=== PATIENT | female | born 1930 | race Caucasian/White ===

== ENCOUNTER 2016-09-20 14:01 | Inpatient (IN) | payer MEDICARE, OTHER, MEDICAID ==
[2016-09-20] MEDS ORDERED: NS 0.9% 1000 ML* 1,000 ML IV ONE (14:09)
[2016-09-20 15:02] LABS: Urine Bacteria 3+ (Absent)
[2016-09-20 15:06] LABS: Urine Glucose Negative (Negative)
[2016-09-20 15:07] LABS: Urine Bilirubin Negative (Negative); Urine Nitrite Negative (Negative)
--- NOTE | 2016-09-20 15:18 | RAD ---
Indication: Nausea, vomiting and diarrhea. Flat and decubitus views of the abdomen demonstrates no free air. Stool is present throughout the colon. Air distended colon is noted. No organomegaly is noted. IMPRESSION: No free air is identified.
[2016-09-20 15:20] LABS: Hematocrit 52 % (35-47); Hemoglobin 16.5 g/dl (12.0-16.0); Mean Corpuscular HGB Conc 32 g/dl (31-36); Mean Corpuscular Hemoglobin 31 pg (27-31); Mean Corpuscular Volume 96 fL (80-97); Mean Platelet Volume 9 um3 (7.4-10.4); Red Blood Count 5.39 10^6/ul (4.0-5.4); Red Cell Distribution Width 15 % (10.5-15); White Blood Count 21.7 10^3/ul (3.5-10.8)
[2016-09-20 15:36] LABS: BUN/Creatinine Ratio 33.8 (8-20); C Reactive Protein 82.84 mg/L (< 5.00); Calcium 10.1 mg/dL (8.6-10.3); EGFR African American 26.1 (>60); EGFR Non-African American 20.3 (>60); Globulin 3.7 g/dL (2-4); Magnesium 2.7 mg/dL (1.9-2.7); Potassium 4.3 mmol/L (3.5-5.0); Total Bilirubin 0.7 mg/dL (0.2-1.0); Total Protein 7.7 g/dL (6.4-8.9)
[2016-09-20] MEDS ORDERED: metroNIDAZOLE TAB* 250 MG PO ONE (15:50)
[2016-09-20] MEDS ORDERED: Morphine INJ* 2 MG/ML 1 ML CARPUJECT IV PRN (16:20)
[2016-09-20] MEDS ORDERED: Ondansetron INJ* 2 MG/ML VIAL IV PRN (16:20)
[2016-09-20] MEDS ORDERED: Acetaminophen TAB* 325 MG PO PRN (16:20)
[2016-09-20] MEDS ORDERED: metroNIDAZOLE IV 500 MG/100ML* 500 MG/100 ML BAG IVPB ONE (16:29)
--- NOTE | 2016-09-20 16:51 | ED ---
Tom Thomas Billy, scribed for Spencer Dobson MD on 09/20/16 at 1450 . Complex/Multi-Sys Presentation - HPI Summary HPI Summary: Patient is an 86 year-old female with a history of dementia coming to [facility] from long-term. Per long-term staff, patient has had increased AMS for the last 2 days. She has received Rocephin IM for the last 2 days. Large soft BM incontinent on arrival. - History Of Current Complaint Chief Complaint: EDWeakness Time Seen by Provider: 09/20/16 14:02 Hx Obtained From: Medical Records Hx From Patient Unobtainable Due To: Other - Dementia, AMS, Level 5 caveat. Timing: Constant Severity Currently: Moderate Severity Initially: Moderate Aggravating Factor(s): n/a Alleviating Factor(s): n/a Associated Signs And Symptoms: Positive: Other - stool incontinence - Allergies/Home Medications Allergies/Adverse Reactions: Allergies Allergy/AdvReac Type Severity Reaction Status Date / Time Sulfa Antibiotics Allergy Unknown Unknown Verified 08/10/16 19:54 Reaction Details Tetracycline Allergy Unknown Unknown Verified 08/10/16 19:54 Reaction Details Tobramycin Allergy Unknown Unknown Verified 08/10/16 19:54 Reaction Details Home Medications: Home Medications Acetaminophen [Acetaminophen Extra Stren] 1,000 mg PO Q12HR PRN 09/20/16 [ History Confirmed 09/20/16] Amiodarone TAB* [Cordarone TAB*] 200 mg PO QAM 09/20/16 [History Confirmed 09/20] Potassium Chlor TAB* [Klor Con ER TAB*] 20 meq PO DAILY 09/20/16 [History Confirmed 09/20/16] Potassium Chlor TAB* [Klor Con ER TAB*] 20 meq PO DAILY 09/20/16 [History Confirmed 09/20/16] cefTRIAXone(*) [Rocephin(*)] 1 gm IM BEDTIME 09/20/16 [History Confirmed ] predniSONE TAB* [Deltasone TAB*] 15 mg PO QAM 09/20/16 [History Confirmed ] PMH/Surg Hx/FS Hx/Imm Hx Endocrine/Hematology History: Reports: Hx Thyroid Disease - hypothyroidism Cardiovascular History: Reports: Hx Coronary Artery Disease, Hx Pacemaker/ICD Sensory History: Reports: Hx Contacts or Glasses Opthamlomology History: Reports: Hx Contacts or Glasses Neurological History: Reports: Hx Dementia - Cancer History Cancer Type, 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 - Social History Alcohol Use: None Substance Use Type: Reports: None Smoking Status (MU): Former Smoker Review of Systems Positive: Other - stool incontinence Neurological: Other - AMS All Other Systems Reviewed And Are Negative: No - Comments Additional Review of Systems Comments: Full ROS not attainable due to AMS, dementia, level 5 caveat. Physical Exam - Summary Physical Exam Summary: VITAL SIGNS: Reviewed. GENERAL: Patient is a well developed and nourished female who seems confused and dehydrated. Patient is not in any acute respiratory distress. HEAD AND FACE: No signs of trauma. No ecchymosis, hematomas or skull depressions. EYES: PERRLA, EOMI x 2, EARS: Hearing grossly intact. MOUTH: Oropharynx within normal limits. NECK: Supple, trachea is midline, no adenopathy, no JVD,. CHEST: Symmetric, no tenderness at palpation LUNGS: Clear to auscultation bilaterally. No wheezing or crackles. CVS: Regular rate and rhythm, S1 and S2 present, no murmurs or gallops appreciated. ABDOMEN: Soft, non-tender. No signs of distention. Hyperactive bowel sounds. EXTREMITIES: FROM in all major joints, no edema, no cyanosis or clubbing. NEURO: Alert but not oriented. SKIN: Dry and warm Triage Information Reviewed: Yes Vital Signs On Initial Exam: Initial Vitals BP 110/77 09/20/16 14:27 Vital Signs Reviewed: Yes Completion Of Physical Exam Limited Due To: Dementia, Altered Mental Status, Level 5 Diagnostics - Vital Signs Vital Signs Temp Pulse Resp BP Pulse Ox 09/20/16 14:44 98.2 F 107 18 110/77 94 09/20/16 14:30 108 124/78 94 09/20/16 14:27 110/77 - Laboratory Lab Results: Lab Results 09/20/16 09/20/16 09/20/16 Range/Units 14:30 15:00 15:00 WBC 21.7 H (3.5-10.8) 10^3/ul RBC 5.39 (4.0-5.4) 10^6/ul Hgb 16.5 H (12.0-16.0) g/dl Hct 52 H (35-47) % MCV 96 (80-97) fL MCH 31 (27-31) pg MCHC 32 (31-36) g/dl RDW 15 (10.5-15) % Plt Count 246 (150-450) 10^3/ul MPV 9 (7.4-10.4) um3 Neut % (Auto) 91.9 H (38-83) % Lymph % (Auto) 2.2 L (25-47) % [place] % (Auto) 5.5 (1-9) % Eos % (Auto) 0 (0-6) % Baso % (Auto) 0.4 (0-2) % Absolute Neuts (auto) 20.0 H (1.5-7.7) 10^3/ul Absolute Lymphs (auto) 0.5 L (1.0-4.8) 10^3/ul Absolute Monos (auto) 1.2 H (0-0.8) 10^3/ul Absolute Eos (auto) 0 (0-0.6) 10^3/ul Absolute Basos (auto) 0.1 (0-0.2) 10^3/ul Absolute Nucleated RBC 0.01 10^3/ul Nucleated RBC % 0 Sodium 144 (133-145) mmol/L Potassium 4.3 (3.5-5.0) mmol/L Chloride 106 (101-111) mmol/L Carbon Dioxide 28 (22-32) mmol/L Anion Gap 10 (2-11) mmol/L BUN 77 H (6-24) mg/dL Creatinine 2.28 H (0.51-0.95) mg/dL Est GFR ( Amer) 26.1 (>60) Est GFR (Non-Af Amer) 20.3 (>60) BUN/Creatinine Ratio 33.8 H (8-20) Glucose 399 H (70-100) mg/dL Lactic Acid (0.5-2.0) mmol/L Calcium 10.1 (8.6-10.3) mg/dL Magnesium 2.7 (1.9-2.7) mg/dL Total Bilirubin 0.70 (0.2-1.0) mg/dL AST 16 (13-39) U/L ALT 13 (7-52) U/L Alkaline Phosphatase 56 (34-104) U/L C-Reactive Protein 82.84 H (< 5.00) mg/L Total Protein 7.7 (6.4-8.9) g/dL Albumin 4.0 (3.2-5.2) g/dL Globulin 3.7 (2-4) g/dL Albumin/Globulin Ratio 1.1 (1-3) Amylase 75 (29-103) U/L Lipase 57 (11.0-82.0) U/L Urine Color Susan Urine Appearance Turbid Urine pH 5 (5-9) Ur Specific [place] 1.035 H (1.010-1.030) Urine Protein 2+(100 mg/dl) H (Negative) Urine Ketones Negative (Negative) Urine Blood 1+ H (Negative) Urine Nitrate Negative (Negative) Urine Bilirubin Negative (Negative) Urine Urobilinogen Negative (Negative) Ur Leukocyte Esterase 4+ H (Negative) Urine WBC (Auto) 3+(>20/hpf) H (Absent) Urine RBC (Auto) Trace(0-2/hpf) (Absent) Urine Bacteria 3+ H (Absent) Urine Glucose Negative (Negative) Urine Ascorbic Acid Not Reportable 09/20/16 Range/Units 15:00 WBC (3.5-10.8) 10^3/ul RBC (4.0-5.4) 10^6/ul Hgb (12.0-16.0) g/dl Hct (35-47) % MCV (80-97) fL MCH (27-31) pg MCHC (31-36) g/dl RDW (10.5-15) % Plt Count (150-450) 10^3/ul MPV (7.4-10.4) um3 Neut % (Auto) (38-83) % Lymph % (Auto) (25-47) % [place] % (Auto) (1-9) % Eos % (Auto) (0-6) % Baso % (Auto) (0-2) % Absolute Neuts (auto) (1.5-7.7) 10^3/ul Absolute Lymphs (auto) (1.0-4.8) 10^3/ul Absolute Monos (auto) (0-0.8) 10^3/ul Absolute Eos (auto) (0-0.6) 10^3/ul Absolute Basos (auto) (0-0.2) 10^3/ul Absolute Nucleated RBC 10^3/ul Nucleated RBC % Sodium (133-145) mmol/L Potassium (3.5-5.0) mmol/L Chloride (101-111) mmol/L Carbon Dioxide (22-32) mmol/L Anion Gap (2-11) mmol/L BUN (6-24) mg/dL Creatinine (0.51-0.95) mg/dL Est GFR ( Amer) (>60) Est GFR (Non-Af Amer) (>60) BUN/Creatinine Ratio (8-20) Glucose (70-100) mg/dL Lactic Acid 3.2 H* (0.5-2.0) mmol/L Calcium (8.6-10.3) mg/dL Magnesium (1.9-2.7) mg/dL Total Bilirubin (0.2-1.0) mg/dL AST (13-39) U/L ALT (7-52) U/L Alkaline Phosphatase (34-104) U/L C-Reactive Protein (< 5.00) mg/L Total Protein (6.4-8.9) g/dL Albumin (3.2-5.2) g/dL Globulin (2-4) g/dL Albumin/Globulin Ratio (1-3) Amylase (29-103) U/L Lipase (11.0-82.0) U/L Urine Color Urine Appearance Urine pH (5-9) Ur Specific [place] (1.010-1.030) Urine Protein (Negative) Urine Ketones (Negative) Urine Blood (Negative) Urine Nitrate (Negative) Urine Bilirubin (Negative) Urine Urobilinogen (Negative) Ur Leukocyte Esterase (Negative) Urine WBC (Auto) (Absent) Urine RBC (Auto) (Absent) Urine Bacteria (Absent) Urine Glucose (Negative) Urine Ascorbic Acid Result Diagrams: 09/20/16 15:00 09/20/16 15:00 Lab Statement: Any lab studies that have been ordered have been reviewed, and results considered in the medical decision making process. - Radiology abd xray Radiology Interpretation Completed By: Radiologist - No free air is identified. - EKG 1359 EKG Interpretation: sinus tachy 111 bpm, no ST elevation 1455 EKG Interpretation: sinus tachy 108 bpm, no ST elevation Complex Multi-Symp Course/Dx Assessment/Plan: Patient is an 86 year-old female with a history of dementia coming to [facility] from long-term. Per long-term staff, patient has had increased AMS for the last 2 days. She has received Rocephin IM for the last 2 days. Large soft BM incontinent on arrival. Bloodwork WNL except for WBC of 21.7 , Hgb 16.5, Hct 52, BUN and creatinine of 77/2.28, glucose of 399, UA positive for UTI. C diff test was positive. In the ED course, patient was given IV fluids. She already had a dose of Rocephin this morning in long-term for UTI , and she was given Flagyl for C diff. At this point, I discussed my physical exam findings and test results with Dr. Vernon, who accepted the patient for admission. - Diagnoses Differential Diagnoses/HQI/PQRI: CVA, Urinary Tract Infection Provider Diagnoses: C. difficile diarrhea, Renal failure, UTI (urinary tract infection), Confusion , r/o sepsis, Dehydration - Physician Notifications Discussed Care Of Patient With: Dr. Vernon (hospitalist) @ 1630: accepts admission. Discharge - Discharge Plan Condition: Stable Disposition: ADMITTED TO [facility] Referrals: Jin Will DO, DO [Primary Care Provider] - The documentation as recorded by the Tom hager Billy accurately reflects the service I personally performed and the decisions made by me, Spencer Dobson MD.
[2016-09-20] MEDS ORDERED: metroNIDAZOLE IV 500 MG/100ML* 500 MG/100 ML BAG IVPB SCH (17:00)
[2016-09-20] MEDS ORDERED: cefTRIAXone VIAL(*) 1,000 MG in NS 0.9% 50 ML* 50 ML IVPB SCH (17:00)
[2016-09-20] MEDS: Vancomycin CAP* 125 MG CAP PO SCH ×2 (17:18→21:16)
[2016-09-20] MEDS: Heparin VIAL(*) 5000 UNITS/ML VIAL (FIVE THOUSAND) SUBCUT SCH (21:16)
--- NOTE | 2016-09-21 02:25 | HP ---
HISTORY AND PHYSICAL: DATE OF ADMISSION: 09/20/16 TIME OF MY EVALUATION: 1600 hours PRIMARY CARE PROVIDER: [facility]/Dr. Will. CHIEF COMPLAINT: Referred by staff - altered mental status for past 2 days. HISTORY OF PRESENT ILLNESS: Ms. Fenton is a severely demented 86-year-old female who has had worsening altered mental status over the past 2 days. She was diagnosed with a urinary tract infection and I understand she has received IM Rocephin for the past 2 days for this. The patient has had worsening soft bowel movements and there was concern for Clostridium difficile. The patient was evaluated in the ER and found to be positive for C. diff which, in the context of her severe diarrhea, was taken as a true infection. Her white blood cell count is elevated at 21.7. Her chemistries are concerning with an elevated creatinine relative to her baseline at 2.28. By reference, only 2 weeks ago her creatinine was 0.92 on 09/06/16. This represents acute renal failure, her lactic acid was 3.2. So, she was referred to the hospitalist service for further workup. Of note, her urinalysis is also abnormal with a white blood cell count of 3+ by microscopy with greater than 20 cells per high power field. The patient does not provide any history -- does not respond to any questions. PAST MEDICAL HISTORY: 1. Status post AV node dysfunction and pacemaker placement. 2. History of coronary artery disease. 3. Dementia. 4. History of aortic stenosis. 5. History of head and neck cancer. 6. History of smoking. 7. Hypertension. 8. COPD. 9. Hypothyroidism. OUTPATIENT MEDICATIONS: 1. Synthroid 50 mcg by mouth daily. 2. Celexa 10 mg by mouth daily. 3. Atenolol 50 mg by mouth daily. 4. Furosemide 20 mg by mouth daily. 5. Norvasc 5 mg by mouth daily. 6. Acetaminophen 1000 mg by mouth twice daily. 7. Prednisone 50 mg by mouth in the morning. ALLERGIES: Include SULFA ANTIBIOTICS, TETRACYCLINES, and TOBRAMYCIN. FAMILY HISTORY: Reviewed but unremarkable based on the chart, unobtainable from this patient. SOCIAL HISTORY: Denies tobacco, alcohol, drug use - prison resident at [facility] - healthcare proxy is daughter, Nallely Soliz. Nallely lives out of state at [phone]. REVIEW OF SYSTEMS: Unable to obtain secondary to the patient's mental status. No pertinent positives noticed from the chart or description from the nursing staff at [facility]. PHYSICAL EXAMINATION GENERAL APPEARANCE: She is an elderly, frail-appearing demented woman in a lateral position, unresponsive to questions. VITAL SIGN: On admission, temperature 98.9, pulse 97, respirations 17, oxygen saturation 96% on room air, blood pressure 130s to 140s/70s. HEENT: Oropharynx is clear. SKIN: Dry and intact. NECK: Supple. No elevated JVD, though the patient is not positioned for proper evaluation. CHEST: Clear to auscultation posteriorly. HEART: Regular rate and rhythm. No murmurs appreciated. ABDOMEN: Soft and nontender. EXTREMITIES: Well perfused. NEUROLOGIC: Unable to assess secondary to mental status but withdraws to pain. PSYCH: Severely demented. ADMISSION DATA: White blood cell count elevated at 21.7 with a severe left shift with 92% neutrophils. Her hemoglobin is hemoconcentrated at 16.5 mg/dL, again back in August she was 13, and platelets 246. Chemistries are most significant for BUN and creatinine of 77/2.8 with a ratio of 33.8 and the creatinine is up from baseline is below 1 to now 2.28. Her glucose is very elevated at 399 - the patient is on steroids and acutely ill. Hemoglobin A1c is 7.7, lactic acid was 3.2 and on recheck 2.2 following fluid administration. Calcium, magnesium are both normal. LFTs normal. CRP greatly elevated at 82. Amylase and lipase 75 and 57, respectively. The abdominal x-ray in the emergency room did not reveal any free air. Her EKG did not have any signs of acute ischemia. Tracing was atrial sensed, V- paced complexes with a rate of 111 beats per minute. IMPRESSION: Ms. Fenton is an 86-year-old female who seems to be suffering from C. diff colitis. I do not think this is related to her urinary tract infection treatment in the prison, for which she had antibiotics intramuscularly for only 3 days. This might be a separate occurrence/separate phenomenon, although she does also have urinary tract infection. Regardless, she is septic with a leukocytosis and tachycardia - as evidenced by the EKG that was taken in the emergency room. She has got multiple lab derangements including acute renal failure with an elevated BUN to creatinine ratio and also hemoconcentration and hemoglobin that is far above her baseline. The patient is being placed on the medical service. She will be kept on contact precautions. She will be started on oral vancomycin. She was originally started on IV metronidazole, but there is severe interactions between her amiodarone and her Celexa, causing very high risk for serotonin syndrome. Oral vancomycin will be certainly effective in this case. The patient will be aggressively hydrated. Labs will be rechecked in the morning including a lactic acid. Vital signs will be followed closely. She is hemodynamically stable right now. Her stool output will be quantified. Obviously, there is high risk for electrolyte derangements with high stool losses. We will combine an alternate LR with normal saline. The patient is a DNR. The patient will continue other medications as she can tolerate. TIME SPENT: Total time taken to admit Ms. Fenton was 75 minutes, greater than half the time was spent going over the history and physical examination. [id number]/[facility] #: [id number] MELISSA
[2016-09-21] MEDS: Levothyroxine TAB* 50 MCG TAB PO SCH (06:09)
[2016-09-21] MEDS: Heparin VIAL(*) 5000 UNITS/ML VIAL (FIVE THOUSAND) SUBCUT SCH ×3 (06:09→21:21)
[2016-09-21 06:27] LABS: Hematocrit 46 % (35-47); Hemoglobin 14.7 g/dl (12.0-16.0); Mean Corpuscular HGB Conc 32 g/dl (31-36); Mean Corpuscular Hemoglobin 30 pg (27-31); Mean Corpuscular Volume 95 fL (80-97); Mean Platelet Volume 9 um3 (7.4-10.4); Red Blood Count 4.84 10^6/ul (4.0-5.4); Red Cell Distribution Width 15 % (10.5-15); White Blood Count 20.3 10^3/ul (3.5-10.8)
[2016-09-21 07:03] LABS: BUN/Creatinine Ratio 35.3 (8-20); Calcium 9.5 mg/dL (8.6-10.3); EGFR African American 48.5 (>60); EGFR Non-African American 37.7 (>60); Magnesium 1.9 mg/dL (1.9-2.7); Phosphorus 2.5 mg/dL (2.5-5.0); Potassium 3.9 mmol/L (3.5-5.0)
[2016-09-21] MEDS ORDERED: NS 0.45% 1000 ML BAG* 1,000 ML IV SCH (08:00)
[2016-09-21] MEDS ORDERED: Potassium Chlor TAB* 20 MEQ TAB.ER PO SCH (09:00)
[2016-09-21] MEDS: Amiodarone TAB* 200 MG PO SCH (09:21)
[2016-09-21] MEDS: Citalopram TAB* 10 MG PO SCH (09:21)
[2016-09-21] MEDS: amLODIPine TAB* 5 MG PO SCH (09:21)
[2016-09-21] MEDS: cefTRIAXone VIAL(*) 1,000 MG in NS 0.9% 50 ML* 50 ML IVPB SCH (09:21)
[2016-09-21] MEDS: Potassium Chlor TAB* 20 MEQ TAB.ER PO SCH (09:21)
[2016-09-21] MEDS: predniSONE TAB* 5 MG PO SCH (09:22)
[2016-09-21] MEDS: Vancomycin CAP* 125 MG CAP PO SCH ×4 (09:22→21:21)
--- NOTE | 2016-09-21 13:24 | PN ---
Subjective Date of Service: 09/21/16 Interval History: pt is disoriented, unable to say if she has pain. speech slightly slurred Objective Active Medications: Acetaminophen (Tylenol Tab*) 650 mg PO Q4H PRN PRN Reason: FEVER/PAIN Amiodarone HCl (Cordarone Tab*) 200 mg PO QAM [facility] Last Admin: 09/21/16 09:21 Dose: 200 mg Amlodipine Besylate (Norvasc Tab*) 5 mg PO QAM [facility] Last Admin: 09/21/16 09:21 Dose: 5 mg Citalopram Hydrobromide (Celexa Tab*) 10 mg PO QAM [facility] Last Admin: 09/21/16 09:21 Dose: 10 mg Heparin Sodium (Porcine) (Heparin Vial(*)) 5,000 units SUBCUT Q8HR [facility] Last Admin: 09/21/16 13:00 Dose: 5,000 units Ceftriaxone Sodium 1,000 mg/ (Sodium Chloride) 50 mls @ 200 mls/hr IVPB Q24H [facility] Last Admin: 09/21/16 09:21 Dose: 200 mls/hr Sodium Chloride (Ns 0.45% 1000 Ml Bag*) 1,000 mls @ 75 mls/hr IV PER RATE [facility] Last Admin: 09/21/16 09:19 Dose: 75 mls/hr Levothyroxine Sodium (Synthroid Tab*) 50 mcg PO DAILY@0600 [facility] Last Admin: 09/21/16 06:09 Dose: 50 mcg Morphine Sulfate (Morphine Inj (Syringe)*) 2 mg IV Q4H PRN PRN Reason: PAIN Ondansetron HCl (Zofran Inj*) 4 mg IV Q4H PRN PRN Reason: NAUSEA/VOMITING Potassium Chloride (Klor Con Er Tab*) 20 meq PO DAILY WITH MEAL [facility] Last Admin: 09/21/16 09:21 Dose: 20 meq Prednisone (Deltasone Tab*) 15 mg PO DAILY WITH MEAL [facility] Last Admin: 09/21/16 09:22 Dose: 15 mg Vancomycin HCl (Vancomycin Cap*) 125 mg PO QID [facility] Last Admin: 09/21/16 12:58 Dose: 125 mg Vital Signs 09/20/16 09/20/16 09/20/16 16:30 17:00 18:11 Temperature 98.9 F Pulse Rate 97 Respiratory 21 21 17 Rate Blood Pressure 147/58 135/59 149/73 (mmHg) O2 Sat by Pulse 96 Oximetry 09/20/16 09/20/16 09/20/16 18:17 20:00 22:51 Temperature 98.9 F Pulse Rate 97 Respiratory 17 18 18 Rate Blood Pressure 149/73 (mmHg) O2 Sat by Pulse 96 Oximetry 09/21/16 09/21/16 09/21/16 04:55 07:17 08:00 Temperature 98.3 F 97.7 F Pulse Rate 96 93 Respiratory 19 20 20 Rate Blood Pressure 145/66 151/73 (mmHg) O2 Sat by Pulse 94 97 Oximetry Appearance: 86 yo F with slightly dysartic speech, disoriented, able to follow simple commands Eyes: No Scleral Icterus, PERRLA Ears/Nose/Mouth/Throat: NL Teeth, Lips, Gums, Mucous Membranes Moist Neck: NL Appearance and Movements; NL JVP, Trachea Midline Respiratory: Symmetrical Chest Expansion and Respiratory Effort, Clear to Auscultation Cardiovascular: NL Sounds; No Murmurs; No JVD, - - 3/6 DAMION at apex Abdominal: NL Sounds; No Tenderness; No Distention, No Hepatosplenomegaly Lymphatic: No Cervical Adenopathy Extremities: No Edema, No Clubbing, Cyanosis Skin: No Rash or Ulcers, No Nodules or Sclerosis Neurological: NL Muscle Strength and Tone Result Diagrams: 09/21/16 06:06 09/21/16 06:06 Additional Lab and Data: Lab Results 09/20/16 09/20/16 09/20/16 Range/Units 14:30 15:00 15:00 WBC 21.7 H (3.5-10.8) 10^3/ul RBC 5.39 (4.0-5.4) 10^6/ul Hgb 16.5 H (12.0-16.0) g/dl Hct 52 H (35-47) % MCV 96 (80-97) fL MCH 31 (27-31) pg MCHC 32 (31-36) g/dl RDW 15 (10.5-15) % Plt Count 246 (150-450) 10^3/ul MPV 9 (7.4-10.4) um3 Neut % (Auto) 91.9 H (38-83) % Lymph % (Auto) 2.2 L (25-47) % [place] % (Auto) 5.5 (1-9) % Eos % (Auto) 0 (0-6) % Baso % (Auto) 0.4 (0-2) % Absolute Neuts (auto) 20.0 H (1.5-7.7) 10^3/ul Absolute Lymphs (auto) 0.5 L (1.0-4.8) 10^3/ul Absolute Monos (auto) 1.2 H (0-0.8) 10^3/ul Absolute Eos (auto) 0 (0-0.6) 10^3/ul Absolute Basos (auto) 0.1 (0-0.2) 10^3/ul Absolute Nucleated RBC 0.01 10^3/ul Nucleated RBC % 0 Sodium 144 (133-145) mmol/L Potassium 4.3 (3.5-5.0) mmol/L Chloride 106 (101-111) mmol/L Carbon Dioxide 28 (22-32) mmol/L Anion Gap 10 (2-11) mmol/L BUN 77 H (6-24) mg/dL Creatinine 2.28 H (0.51-0.95) mg/dL Est GFR ( Amer) 26.1 (>60) Est GFR (Non-Af Amer) 20.3 (>60) BUN/Creatinine Ratio 33.8 H (8-20) Glucose 399 H (70-100) mg/dL Lactic Acid (0.5-2.0) mmol/L Calcium 10.1 (8.6-10.3) mg/dL Magnesium 2.7 (1.9-2.7) mg/dL Total Bilirubin 0.70 (0.2-1.0) mg/dL AST 16 (13-39) U/L ALT 13 (7-52) U/L Alkaline Phosphatase 56 (34-104) U/L C-Reactive Protein 82.84 H (< 5.00) mg/L Total Protein 7.7 (6.4-8.9) g/dL Albumin 4.0 (3.2-5.2) g/dL Globulin 3.7 (2-4) g/dL Albumin/Globulin Ratio 1.1 (1-3) Amylase 75 (29-103) U/L Lipase 57 (11.0-82.0) U/L Urine Color Susan Urine Appearance Turbid Urine pH 5 (5-9) Ur Specific [place] 1.035 H (1.010-1.030) Urine Protein 2+(100 mg/dl) H (Negative) Urine Ketones Negative (Negative) Urine Blood 1+ H (Negative) Urine Nitrate Negative (Negative) Urine Bilirubin Negative (Negative) Urine Urobilinogen Negative (Negative) Ur Leukocyte Esterase 4+ H (Negative) Urine WBC (Auto) 3+(>20/hpf) H (Absent) Urine RBC (Auto) Trace(0-2/hpf) (Absent) Urine Bacteria 3+ H (Absent) Urine Glucose Negative (Negative) Urine Ascorbic Acid Not Reportable 09/20/16 Range/Units 15:00 WBC (3.5-10.8) 10^3/ul RBC (4.0-5.4) 10^6/ul Hgb (12.0-16.0) g/dl Hct (35-47) % MCV (80-97) fL MCH (27-31) pg MCHC (31-36) g/dl RDW (10.5-15) % Plt Count (150-450) 10^3/ul MPV (7.4-10.4) um3 Neut % (Auto) (38-83) % Lymph % (Auto) (25-47) % [place] % (Auto) (1-9) % Eos % (Auto) (0-6) % Baso % (Auto) (0-2) % Absolute Neuts (auto) (1.5-7.7) 10^3/ul Absolute Lymphs (auto) (1.0-4.8) 10^3/ul Absolute Monos (auto) (0-0.8) 10^3/ul Absolute Eos (auto) (0-0.6) 10^3/ul Absolute Basos (auto) (0-0.2) 10^3/ul Absolute Nucleated RBC 10^3/ul Nucleated RBC % Sodium (133-145) mmol/L Potassium (3.5-5.0) mmol/L Chloride (101-111) mmol/L Carbon Dioxide (22-32) mmol/L Anion Gap (2-11) mmol/L BUN (6-24) mg/dL Creatinine (0.51-0.95) mg/dL Est GFR ( Amer) (>60) Est GFR (Non-Af Amer) (>60) BUN/Creatinine Ratio (8-20) Glucose (70-100) mg/dL Lactic Acid 3.2 H* (0.5-2.0) mmol/L Calcium (8.6-10.3) mg/dL Magnesium (1.9-2.7) mg/dL Total Bilirubin (0.2-1.0) mg/dL AST (13-39) U/L ALT (7-52) U/L Alkaline Phosphatase (34-104) U/L C-Reactive Protein (< 5.00) mg/L Total Protein (6.4-8.9) g/dL Albumin (3.2-5.2) g/dL Globulin (2-4) g/dL Albumin/Globulin Ratio (1-3) Amylase (29-103) U/L Lipase (11.0-82.0) U/L Urine Color Urine Appearance Urine pH (5-9) Ur Specific [place] (1.010-1.030) Urine Protein (Negative) Urine Ketones (Negative) Urine Blood (Negative) Urine Nitrate (Negative) Urine Bilirubin (Negative) Urine Urobilinogen (Negative) Ur Leukocyte Esterase (Negative) Urine WBC (Auto) (Absent) Urine RBC (Auto) (Absent) Urine Bacteria (Absent) Urine Glucose (Negative) Urine Ascorbic Acid Microbiology and Other Data: Microbiology 09/20/16 16:40 Nasal Screen MRSA (PCR)(DAWIT) - Final Nasal Mrsa Negative Assess/Plan/Problems-Billing Assessment: 86 yo F with h/o HTN, pacer on chronic prednisone presents with C. diff diarrhea - Patient Problems (1) C. difficile diarrhea Comment: Met sepsis criteria at admission cont PO Vanc (2) ARAMIS (acute kidney injury) Comment: due to dehydration secondary to above. Start 1/2 NS due to slight hypernatremia Monitor (3) Hypothyroid Comment: cont Synthroid (4) Hyperglycemia Comment: due to diet controlled DM (5) DVT prophylaxis Comment: heparin sc.
[2016-09-21 13:33] LABS: BUN/Creatinine Ratio 34.2 (8-20); EGFR African American 59.8 (>60); EGFR Non-African American 46.5 (>60); Potassium 3.7 mmol/L (3.5-5.0)
[2016-09-22] MEDS: Heparin VIAL(*) 5000 UNITS/ML VIAL (FIVE THOUSAND) SUBCUT SCH ×3 (05:27→21:21)
[2016-09-22] MEDS: Levothyroxine TAB* 50 MCG TAB PO SCH (05:27)
[2016-09-22 06:09] LABS: Hematocrit 42 % (35-47); Hemoglobin 13.3 g/dl (12.0-16.0); Mean Corpuscular HGB Conc 32 g/dl (31-36); Mean Corpuscular Hemoglobin 30 pg (27-31); Mean Corpuscular Volume 95 fL (80-97); Mean Platelet Volume 9 um3 (7.4-10.4); Red Blood Count 4.37 10^6/ul (4.0-5.4); Red Cell Distribution Width 15 % (10.5-15); White Blood Count 15.2 10^3/ul (3.5-10.8)
[2016-09-22 06:11] LABS: Add Diff/Slide Review? Slide Review Added; Comments Flag Yes
[2016-09-22 06:21] LABS: BUN/Creatinine Ratio 27.4 (8-20); Calcium 8.9 mg/dL (8.6-10.3); EGFR African American 63.1 (>60); Potassium 3.4 mmol/L (3.5-5.0)
[2016-09-22] MEDS ORDERED: Potassium Chloride LIQUID* 20 MEQ PACKET PO ONE (09:00)
[2016-09-22] MEDS: cefTRIAXone VIAL(*) 1,000 MG in NS 0.9% 50 ML* 50 ML IVPB SCH (09:31)
[2016-09-22] MEDS: Potassium Chlor TAB* 20 MEQ TAB.ER PO SCH (09:33)
[2016-09-22] MEDS: Vancomycin CAP* 125 MG CAP PO SCH ×4 (09:33→21:30)
[2016-09-22] MEDS: amLODIPine TAB* 5 MG PO SCH (09:33)
[2016-09-22] MEDS: Amiodarone TAB* 200 MG PO SCH (09:34)
[2016-09-22] MEDS: Citalopram TAB* 10 MG PO SCH (09:34)
[2016-09-22] MEDS: predniSONE TAB* 5 MG PO SCH (09:34)
--- NOTE | 2016-09-22 11:34 | PN ---
Subjective Date of Service: 09/22/16 Interval History: pt feels well. diarrhea seems to be resolving. Denies abd pain. Objective Active Medications: Acetaminophen (Tylenol Tab*) 650 mg PO Q4H PRN PRN Reason: FEVER/PAIN Amiodarone HCl (Cordarone Tab*) 200 mg PO QAM [facility] Last Admin: 09/22/16 09:34 Dose: 200 mg Amlodipine Besylate ([facility]*) [facility] Last Admin: 09/22/16 09:33 Dose: 5 mg Citalopram Hydrobromide (Celexa Tab*) 10 mg PO QAM [facility] Last Admin: 09/22/16 09:34 Dose: 10 mg Heparin Sodium (Porcine) (Heparin Vial(*)) 5,000 units SUBCUT Q8HR [facility] Last Admin: 09/22/16 05:27 Dose: 5,000 units Ceftriaxone Sodium 1,000 mg/ (Sodium Chloride) 50 mls @ 200 mls/hr IVPB Q24H [facility] Last Admin: 09/22/16 09:31 Dose: 200 mls/hr Sodium Chloride (Ns 0.9% 1000 Ml*) 1,000 mls @ 75 mls/hr IV .PER RATE [facility] Levothyroxine Sodium (Synthroid Tab*) 50 mcg PO DAILY@0600 [facility] Last Admin: 09/22/16 05:27 Dose: 50 mcg Morphine Sulfate (Morphine Inj (Syringe)*) 2 mg IV Q4H PRN PRN Reason: PAIN Ondansetron HCl (Zofran Inj*) 4 mg IV Q4H PRN PRN Reason: NAUSEA/VOMITING Potassium Chloride (Klor Con Er Tab*) 20 meq PO DAILY WITH MEAL [facility] Last Admin: 09/22/16 09:33 Dose: 20 meq Prednisone (Deltasone Tab*) 15 mg PO DAILY WITH MEAL [facility] Last Admin: 09/22/16 09:34 Dose: 15 mg Vancomycin HCl (Vancomycin Cap*) 125 mg PO QID [facility] Last Admin: 09/22/16 09:33 Dose: 125 mg Vital Signs 09/21/16 09/21/16 09/21/16 15:53 16:03 20:00 Temperature 97.8 F Pulse Rate 81 78 Respiratory 28 22 20 Rate Blood Pressure 163/69 142/57 (mmHg) O2 Sat by Pulse 93 94 Oximetry 09/22/16 09/22/16 00:16 08:00 Temperature 97.3 F Pulse Rate 70 Respiratory 16 16 Rate Blood Pressure 144/52 (mmHg) O2 Sat by Pulse 94 Oximetry Oxygen Devices in Use Now: None Appearance: 86 yo F in nAd, AAOx1, pleasant and conversational Eyes: No Scleral Icterus, PERRLA Ears/Nose/Mouth/Throat: NL Teeth, Lips, Gums, Mucous Membranes Moist Neck: NL Appearance and Movements; NL JVP, Trachea Midline Respiratory: Symmetrical Chest Expansion and Respiratory Effort, Clear to Auscultation Cardiovascular: NL Sounds; No Murmurs; No JVD Result Diagrams: 09/22/16 06:00 09/22/16 06:00 Additional Lab and Data: Lab Results 09/20/16 09/20/16 09/20/16 Range/Units 14:30 15:00 15:00 WBC 21.7 H (3.5-10.8) 10^3/ul RBC 5.39 (4.0-5.4) 10^6/ul Hgb 16.5 H (12.0-16.0) g/dl Hct 52 H (35-47) % MCV 96 (80-97) fL MCH 31 (27-31) pg MCHC 32 (31-36) g/dl RDW 15 (10.5-15) % Plt Count 246 (150-450) 10^3/ul MPV 9 (7.4-10.4) um3 Neut % (Auto) 91.9 H (38-83) % Lymph % (Auto) 2.2 L (25-47) % [place] % (Auto) 5.5 (1-9) % Eos % (Auto) 0 (0-6) % Baso % (Auto) 0.4 (0-2) % Absolute Neuts (auto) 20.0 H (1.5-7.7) 10^3/ul Absolute Lymphs (auto) 0.5 L (1.0-4.8) 10^3/ul Absolute Monos (auto) 1.2 H (0-0.8) 10^3/ul Absolute Eos (auto) 0 (0-0.6) 10^3/ul Absolute Basos (auto) 0.1 (0-0.2) 10^3/ul Absolute Nucleated RBC 0.01 10^3/ul Nucleated RBC % 0 Sodium 144 (133-145) mmol/L Potassium 4.3 (3.5-5.0) mmol/L Chloride 106 (101-111) mmol/L Carbon Dioxide 28 (22-32) mmol/L Anion Gap 10 (2-11) mmol/L BUN 77 H (6-24) mg/dL Creatinine 2.28 H (0.51-0.95) mg/dL Est GFR ( Amer) 26.1 (>60) Est GFR (Non-Af Amer) 20.3 (>60) BUN/Creatinine Ratio 33.8 H (8-20) Glucose 399 H (70-100) mg/dL Lactic Acid (0.5-2.0) mmol/L Calcium 10.1 (8.6-10.3) mg/dL Magnesium 2.7 (1.9-2.7) mg/dL Total Bilirubin 0.70 (0.2-1.0) mg/dL AST 16 (13-39) U/L ALT 13 (7-52) U/L Alkaline Phosphatase 56 (34-104) U/L C-Reactive Protein 82.84 H (< 5.00) mg/L Total Protein 7.7 (6.4-8.9) g/dL Albumin 4.0 (3.2-5.2) g/dL Globulin 3.7 (2-4) g/dL Albumin/Globulin Ratio 1.1 (1-3) Amylase 75 (29-103) U/L Lipase 57 (11.0-82.0) U/L Urine Color Susan Urine Appearance Turbid Urine pH 5 (5-9) Ur Specific [place] 1.035 H (1.010-1.030) Urine Protein 2+(100 mg/dl) H (Negative) Urine Ketones Negative (Negative) Urine Blood 1+ H (Negative) Urine Nitrate Negative (Negative) Urine Bilirubin Negative (Negative) Urine Urobilinogen Negative (Negative) Ur Leukocyte Esterase 4+ H (Negative) Urine WBC (Auto) 3+(>20/hpf) H (Absent) Urine RBC (Auto) Trace(0-2/hpf) (Absent) Urine Bacteria 3+ H (Absent) Urine Glucose Negative (Negative) Urine Ascorbic Acid Not Reportable 09/20/16 Range/Units 15:00 WBC (3.5-10.8) 10^3/ul RBC (4.0-5.4) 10^6/ul Hgb (12.0-16.0) g/dl Hct (35-47) % MCV (80-97) fL MCH (27-31) pg MCHC (31-36) g/dl RDW (10.5-15) % Plt Count (150-450) 10^3/ul MPV (7.4-10.4) um3 Neut % (Auto) (38-83) % Lymph % (Auto) (25-47) % [place] % (Auto) (1-9) % Eos % (Auto) (0-6) % Baso % (Auto) (0-2) % Absolute Neuts (auto) (1.5-7.7) 10^3/ul Absolute Lymphs (auto) (1.0-4.8) 10^3/ul Absolute Monos (auto) (0-0.8) 10^3/ul Absolute Eos (auto) (0-0.6) 10^3/ul Absolute Basos (auto) (0-0.2) 10^3/ul Absolute Nucleated RBC 10^3/ul Nucleated RBC % Sodium (133-145) mmol/L Potassium (3.5-5.0) mmol/L Chloride (101-111) mmol/L Carbon Dioxide (22-32) mmol/L Anion Gap (2-11) mmol/L BUN (6-24) mg/dL Creatinine (0.51-0.95) mg/dL Est GFR ( Amer) (>60) Est GFR (Non-Af Amer) (>60) BUN/Creatinine Ratio (8-20) Glucose (70-100) mg/dL Lactic Acid 3.2 H* (0.5-2.0) mmol/L Calcium (8.6-10.3) mg/dL Magnesium (1.9-2.7) mg/dL Total Bilirubin (0.2-1.0) mg/dL AST (13-39) U/L ALT (7-52) U/L Alkaline Phosphatase (34-104) U/L C-Reactive Protein (< 5.00) mg/L Total Protein (6.4-8.9) g/dL Albumin (3.2-5.2) g/dL Globulin (2-4) g/dL Albumin/Globulin Ratio (1-3) Amylase (29-103) U/L Lipase (11.0-82.0) U/L Urine Color Urine Appearance Urine pH (5-9) Ur Specific [place] (1.010-1.030) Urine Protein (Negative) Urine Ketones (Negative) Urine Blood (Negative) Urine Nitrate (Negative) Urine Bilirubin (Negative) Urine Urobilinogen (Negative) Ur Leukocyte Esterase (Negative) Urine WBC (Auto) (Absent) Urine RBC (Auto) (Absent) Urine Bacteria (Absent) Urine Glucose (Negative) Urine Ascorbic Acid Microbiology and Other Data: Microbiology 09/20/16 16:40 Nasal Screen MRSA (PCR)(DAWIT) - Final Nasal Mrsa Negative Assess/Plan/Problems-Billing Assessment: 86 yo F with h/o HTN, pacer, A. fib, on prednisone for h/o skin rash, presents with C. diff diarrhea - Patient Problems (1) C. difficile diarrhea Comment: Met sepsis criteria at admission cont PO Vanc (2) ARAMIS (acute kidney injury) Comment: due to dehydration secondary to above. resolving, cont IVF Monitor (3) Hypothyroid Comment: cont Synthroid (4) Hyperglycemia Comment: due to diet controlled DM (5) Atrial fibrillation Comment: h/o ,cont Amiodarone. (6) On prednisone therapy Comment: as per med records, due to skin rash. will cont current dose No evidence of rash on exam. (7) DVT prophylaxis Comment: heparin sc.
[2016-09-22 14:33] LABS: Urine Bacteria Absent (Absent); Urine Bilirubin Negative (Negative); Urine Glucose Negative (Negative); Urine Nitrite Negative (Negative)
[2016-09-22] MEDS: NS 0.9% 1000 ML* 1,000 ML IV SCH (21:52)
[2016-09-23] MEDS: Levothyroxine TAB* 50 MCG TAB PO SCH (06:14)
[2016-09-23] MEDS: Heparin VIAL(*) 5000 UNITS/ML VIAL (FIVE THOUSAND) SUBCUT SCH ×3 (06:14→21:58)
[2016-09-23 07:05] LABS: BUN/Creatinine Ratio 24.4 (8-20); Calcium 8.4 mg/dL (8.6-10.3); EGFR African American 84.8 (>60); EGFR Non-African American 65.9 (>60)
[2016-09-23] MEDS: Amiodarone TAB* 200 MG PO SCH (07:34)
[2016-09-23] MEDS: predniSONE TAB* 5 MG PO SCH (07:34)
[2016-09-23] MEDS: cefTRIAXone VIAL(*) 1,000 MG in NS 0.9% 50 ML* 50 ML IVPB SCH (07:34)
[2016-09-23] MEDS: amLODIPine TAB* 5 MG PO SCH (07:34)
[2016-09-23] MEDS: Potassium Chlor TAB* 20 MEQ TAB.ER PO SCH (07:34)
[2016-09-23] MEDS: Vancomycin CAP* 125 MG CAP PO SCH ×4 (07:34→20:46)
[2016-09-23] MEDS: Citalopram TAB* 10 MG PO SCH (07:34)
[2016-09-23] MEDS ORDERED: KCL 20 MEQ/100 ML IVPREMIX* 20 MEQ/100 ML BAG IV ONE (08:38)
[2016-09-23] MEDS ORDERED: Potassium Chlor TAB* 20 MEQ TAB.ER PO ONE (08:38)
[2016-09-23] MEDS: NS 0.9% 1000 ML* 1,000 ML IV SCH (11:36)
--- NOTE | 2016-09-23 12:52 | CONS ---
CONSULTATION REPORT: DATE OF CONSULT: 09/23/16 REQUESTING PHYSICIAN: Dr. Oliver. CONSULTING SERVICE: Infectious Disease. REASON FOR CONSULTATION: Recurrent C. difficile associated diarrhea. IMPRESSION: 1. Diarrhea with recent antibiotic use, record suggests it was explosive multiple times per day, Clostridium difficile PCR was positive. This is the second episode since end of July. 2. Has been treated for a Citrobacter and VRE urinary tract infection. However , she has no symptoms of dysuria or frequency and she has had 5 days of treatment. Followup urinalysis is cleared. I do not think there is ongoing urinary tract infection. 3. 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 RECOMMENDATIONS: 1. Stop ceftriaxone. 2. Continue vancomycin 125 mg by mouth 4 times a day. Given this is the second episode, we will plan on 14-day course of vancomycin. HISTORY OF PRESENT ILLNESS: This is an 86-year-old woman with baseline dementia , admitted with worsening diarrhea and decline in mental status from [facility]. Contribution to the history is limited given her baseline mental status which does seem to be improved from admission however, the rest was obtained from discussion with Dr. Oliver and review of the medical record. She had been having worsening diarrhea, was on ceftriaxone. C. diff PCR was positive. She had a leukocytosis 25,000 when she came to the hospital. She was started on oral vancomycin. According to the nurse, today she has had 3 loose bowel movements this morning already. The patient denies fevers, chills, or sweats. Her appetite is okay. She does note diffuse abdominal pain. She had been treated with IM ceftriaxone at [facility] for positive urinalysis which has subsequently grown Citrobacter and VRE. She continues on ceftriaxone here. She denies urinary frequency or dysuria. PAST MEDICAL HISTORY: 1. Aortic stenosis. 2. C. difficile diarrhea. 3. Diverticulitis. 4. Dementia. 5. Coronary artery disease. 6. AV node dysfunction status post pacemaker placement. 7. History of head and neck cancer. 8. Past tobacco use. 9. Hypertension. 10. COPD. 11. Hypothyroidism. MEDICATIONS: 1. Ceftriaxone. 2. Amiodarone. 3. Tylenol. 4. Celexa. 5. Heparin subcutaneous injection. 6. Levothyroxine. 7. Zofran. 8. Potassium. 9. Vancomycin 125 mg by mouth 4 times a day. 10. Amlodipine. 11. Prednisone 50 mg daily. ALLERGIES: SULFA, TETRACYCLINE and TOBRAMYCIN. FAMILY HISTORY: Unknown. SOCIAL HISTORY: She lives at [facility]. She has no travel. REVIEW OF SYSTEMS: Negative except as noted above. PHYSICAL EXAM: Vital Signs: Temperature 36.5, heart rate 60, respiratory rate 16, blood pressure 135/30, O2 sat 97% on room air. General: She is not in distress or diaphoretic. Neurologically, she is awake, oriented x2. Follows commands, answers questions appropriately. HEENT: There is no conjunctival hemorrhage. Oropharynx: Without lesions. Neck is supple without nuchal rigidity. Heart is regular rate and rhythm with a 3/6 systolic murmur. Lungs are clear to auscultation bilaterally. Abdomen: Soft, nontender, nondistended without hepatosplenomegaly. Skin: There are no rashes or splinter hemorrhages. Musculoskeletal: There is no spine tenderness to palpation or joint synovitis. DIAGNOSTIC STUDIES/LAB DATA: Urinalysis shows no blood or nitrites. White blood cell count 15, hemoglobin 13, platelets 186. Creatinine 0.8. Lactate 1, down from 2. Please see impression and recommendations as outlined above which I have discussed with Dr. Oliver. Thank you for asking me to see Ms. Fenton in consultation. [id number]/CPS #: [id number] MTDD
[2016-09-23] MEDS ORDERED: NS 0.9% 1000 ML* 1,000 ML IV SCH (15:21)
--- NOTE | 2016-09-23 15:46 | PN ---
Subjective Date of Service: 09/23/16 Interval History: pt c/o feeling "sore all over". no abd pain. Still has diarrhea. Objective Active Medications: Acetaminophen (Tylenol Tab*) 650 mg PO Q4H PRN PRN Reason: FEVER/PAIN Amiodarone HCl (Cordarone Tab*) 200 mg PO QAM [facility] Last Admin: 09/23/16 07:34 Dose: 200 mg Amlodipine Besylate (Norvasc Tab*) 5 mg PO QAM [facility] Last Admin: 09/23/16 07:34 Dose: 5 mg Citalopram Hydrobromide (Celexa Tab*) 10 mg PO QAM [facility] Last Admin: 09/23/16 07:34 Dose: 10 mg Heparin Sodium (Porcine) (Heparin Vial(*)) 5,000 units SUBCUT Q8HR [facility] Last Admin: 09/23/16 13:48 Dose: 5,000 units Sodium Chloride (Ns 0.9% 1000 Ml*) 1,000 mls @ 50 mls/hr IV .PER RATE [facility] Levothyroxine Sodium (Synthroid Tab*) 50 mcg PO DAILY@0600 [facility] Last Admin: 09/23/16 06:14 Dose: 50 mcg Morphine Sulfate (Morphine Inj (Syringe)*) 2 mg IV Q4H PRN PRN Reason: PAIN Ondansetron HCl (Zofran Inj*) 4 mg IV Q4H PRN PRN Reason: NAUSEA/VOMITING Potassium Chloride (Klor Con Er Tab*) 20 meq PO DAILY WITH MEAL [facility] Last Admin: 09/23/16 07:34 Dose: 20 meq Prednisone (Deltasone Tab*) 15 mg PO DAILY WITH MEAL [facility] Last Admin: 09/23/16 07:34 Dose: 15 mg Vancomycin HCl (Vancomycin Cap*) 125 mg PO QID [facility] Last Admin: 09/23/16 13:48 Dose: 125 mg Vital Signs 09/22/16 09/22/16 09/23/16 16:16 20:00 00:25 Temperature 97.3 F 97.5 F Pulse Rate 74 71 Respiratory 22 20 20 Rate Blood Pressure 145/63 142/57 (mmHg) O2 Sat by Pulse 94 97 Oximetry 09/23/16 09/23/16 07:19 09:28 Temperature 97.7 F Pulse Rate 65 Respiratory 16 20 Rate Blood Pressure 135/30 (mmHg) O2 Sat by Pulse 97 Oximetry Oxygen Devices in Use Now: None Appearance: 86 yo F in nAd, aAOx3 Eyes: No Scleral Icterus, PERRLA Ears/Nose/Mouth/Throat: NL Teeth, Lips, Gums, Mucous Membranes Moist Neck: NL Appearance and Movements; NL JVP, Trachea Midline Respiratory: Symmetrical Chest Expansion and Respiratory Effort, Clear to Auscultation Cardiovascular: NL Sounds; No Murmurs; No JVD, RRR Abdominal: NL Sounds; No Tenderness; No Distention, No Hepatosplenomegaly Lymphatic: No Cervical Adenopathy Extremities: No Edema, No Clubbing, Cyanosis Skin: No Rash or Ulcers Neurological: NL Muscle Strength and Tone Result Diagrams: 09/22/16 06:00 09/23/16 06:27 Additional Lab and Data: Lab Results 09/20/16 09/20/16 09/20/16 Range/Units 14:30 15:00 15:00 WBC 21.7 H (3.5-10.8) 10^3/ul RBC 5.39 (4.0-5.4) 10^6/ul Hgb 16.5 H (12.0-16.0) g/dl Hct 52 H (35-47) % MCV 96 (80-97) fL MCH 31 (27-31) pg MCHC 32 (31-36) g/dl RDW 15 (10.5-15) % Plt Count 246 (150-450) 10^3/ul MPV 9 (7.4-10.4) um3 Neut % (Auto) 91.9 H (38-83) % Lymph % (Auto) 2.2 L (25-47) % [place] % (Auto) 5.5 (1-9) % Eos % (Auto) 0 (0-6) % Baso % (Auto) 0.4 (0-2) % Absolute Neuts (auto) 20.0 H (1.5-7.7) 10^3/ul Absolute Lymphs (auto) 0.5 L (1.0-4.8) 10^3/ul Absolute Monos (auto) 1.2 H (0-0.8) 10^3/ul Absolute Eos (auto) 0 (0-0.6) 10^3/ul Absolute Basos (auto) 0.1 (0-0.2) 10^3/ul Absolute Nucleated RBC 0.01 10^3/ul Nucleated RBC % 0 Sodium 144 (133-145) mmol/L Potassium 4.3 (3.5-5.0) mmol/L Chloride 106 (101-111) mmol/L Carbon Dioxide 28 (22-32) mmol/L Anion Gap 10 (2-11) mmol/L BUN 77 H (6-24) mg/dL Creatinine 2.28 H (0.51-0.95) mg/dL Est GFR ( Amer) 26.1 (>60) Est GFR (Non-Af Amer) 20.3 (>60) BUN/Creatinine Ratio 33.8 H (8-20) Glucose 399 H (70-100) mg/dL Lactic Acid (0.5-2.0) mmol/L Calcium 10.1 (8.6-10.3) mg/dL Magnesium 2.7 (1.9-2.7) mg/dL Total Bilirubin 0.70 (0.2-1.0) mg/dL AST 16 (13-39) U/L ALT 13 (7-52) U/L Alkaline Phosphatase 56 (34-104) U/L C-Reactive Protein 82.84 H (< 5.00) mg/L Total Protein 7.7 (6.4-8.9) g/dL Albumin 4.0 (3.2-5.2) g/dL Globulin 3.7 (2-4) g/dL Albumin/Globulin Ratio 1.1 (1-3) Amylase 75 (29-103) U/L Lipase 57 (11.0-82.0) U/L Urine Color Susan Urine Appearance Turbid Urine pH 5 (5-9) Ur Specific [place] 1.035 H (1.010-1.030) Urine Protein 2+(100 mg/dl) H (Negative) Urine Ketones Negative (Negative) Urine Blood 1+ H (Negative) Urine Nitrate Negative (Negative) Urine Bilirubin Negative (Negative) Urine Urobilinogen Negative (Negative) Ur Leukocyte Esterase 4+ H (Negative) Urine WBC (Auto) 3+(>20/hpf) H (Absent) Urine RBC (Auto) Trace(0-2/hpf) (Absent) Urine Bacteria 3+ H (Absent) Urine Glucose Negative (Negative) Urine Ascorbic Acid Not Reportable 02/03/17 Range/Units 15:00 WBC (3.5-10.8) 10^3/ul RBC (4.0-5.4) 10^6/ul Hgb (12.0-16.0) g/dl Hct (35-47) % MCV (80-97) fL MCH (27-31) pg MCHC (31-36) g/dl RDW (10.5-15) % Plt Count (150-450) 10^3/ul MPV (7.4-10.4) um3 Neut % (Auto) (38-83) % Lymph % (Auto) (25-47) % [place] % (Auto) (1-9) % Eos % (Auto) (0-6) % Baso % (Auto) (0-2) % Absolute Neuts (auto) (1.5-7.7) 10^3/ul Absolute Lymphs (auto) (1.0-4.8) 10^3/ul Absolute Monos (auto) (0-0.8) 10^3/ul Absolute Eos (auto) (0-0.6) 10^3/ul Absolute Basos (auto) (0-0.2) 10^3/ul Absolute Nucleated RBC 10^3/ul Nucleated RBC % Sodium (133-145) mmol/L Potassium (3.5-5.0) mmol/L Chloride (101-111) mmol/L Carbon Dioxide (22-32) mmol/L Anion Gap (2-11) mmol/L BUN (6-24) mg/dL Creatinine (0.51-0.95) mg/dL Est GFR ( Amer) (>60) Est GFR (Non-Af Amer) (>60) BUN/Creatinine Ratio (8-20) Glucose (70-100) mg/dL Lactic Acid 3.2 H* (0.5-2.0) mmol/L Calcium (8.6-10.3) mg/dL Magnesium (1.9-2.7) mg/dL Total Bilirubin (0.2-1.0) mg/dL AST (13-39) U/L ALT (7-52) U/L Alkaline Phosphatase (34-104) U/L C-Reactive Protein (< 5.00) mg/L Total Protein (6.4-8.9) g/dL Albumin (3.2-5.2) g/dL Globulin (2-4) g/dL Albumin/Globulin Ratio (1-3) Amylase (29-103) U/L Lipase (11.0-82.0) U/L Urine Color Urine Appearance Urine pH (5-9) Ur Specific [place] (1.010-1.030) Urine Protein (Negative) Urine Ketones (Negative) Urine Blood (Negative) Urine Nitrate (Negative) Urine Bilirubin (Negative) Urine Urobilinogen (Negative) Ur Leukocyte Esterase (Negative) Urine WBC (Auto) (Absent) Urine RBC (Auto) (Absent) Urine Bacteria (Absent) Urine Glucose (Negative) Urine Ascorbic Acid Microbiology and Other Data: Microbiology 09/20/16 16:40 Nasal Screen MRSA (PCR)(DAWIT) - Final Nasal Mrsa Negative Assess/Plan/Problems-Billing Assessment: 86 yo F with h/o HTN, pacer, A. fib, on prednisone for h/o skin rash, presents with C. diff diarrhea - Patient Problems (1) C. difficile diarrhea Comment: Was septic on admission. cont PO Vanc x 14 days total (2) ARAMIS (acute kidney injury) Comment: due to dehydration secondary to above. resolved, cont gentle IVF when diarrhea still present Monitor (3) Hypothyroid Comment: cont Synthroid (4) Hyperglycemia Comment: due to diet controlled DM (5) Atrial fibrillation Comment: h/o ,cont Amiodarone. (6) On prednisone therapy Comment: as per med records, due to skin rash. will cont current dose No evidence of rash on exam. (7) DVT prophylaxis Comment: heparin sc. Status and Disposition: inpatient
[2016-09-24] MEDS: Heparin VIAL(*) 5000 UNITS/ML VIAL (FIVE THOUSAND) SUBCUT SCH ×2 (05:44→12:26)
[2016-09-24] MEDS: Levothyroxine TAB* 50 MCG TAB PO SCH (05:46)
[2016-09-24] MEDS: Amiodarone TAB* 200 MG PO SCH (07:31)
[2016-09-24] MEDS: Citalopram TAB* 10 MG PO SCH (07:31)
[2016-09-24] MEDS: amLODIPine TAB* 5 MG PO SCH (07:31)
[2016-09-24] MEDS: Potassium Chlor TAB* 20 MEQ TAB.ER PO SCH (07:31)
[2016-09-24] MEDS: predniSONE TAB* 5 MG PO SCH (07:31)
[2016-09-24] MEDS: Vancomycin CAP* 125 MG CAP PO SCH ×2 (07:31→11:58)
--- NOTE | 2016-09-24 07:49 | PN ---
Subjective Date of Service: 09/24/16 Interval History: Pt is disoriented at baseline, no complaints Objective Active Medications: Acetaminophen (Tylenol Tab*) 650 mg PO Q4H PRN PRN Reason: FEVER/PAIN Last Admin: 09/23/16 20:46 Dose: 650 mg Amiodarone HCl (Cordarone Tab*) 200 mg PO QAM [facility] Last Admin: 09/24/16 07:31 Dose: 200 mg Amlodipine Besylate (Norvasc Tab*) 5 mg PO QAM [facility] Last Admin: 09/24/16 07:31 Dose: 5 mg Citalopram Hydrobromide (Celexa Tab*) 10 mg PO QAM [facility] Last Admin: 09/24/16 07:31 Dose: 10 mg Heparin Sodium (Porcine) (Heparin Vial(*)) 5,000 units SUBCUT Q8HR [facility] Last Admin: 09/24/16 05:44 Dose: 5,000 units Sodium Chloride (Ns 0.9% 1000 Ml*) 1,000 mls @ 50 mls/hr IV .PER RATE [facility] Last Admin: 09/24/16 05:44 Dose: 50 mls/hr Levothyroxine Sodium (Synthroid Tab*) 50 mcg PO DAILY@0600 [facility] Last Admin: 09/24/16 05:46 Dose: 50 mcg Morphine Sulfate (Morphine Inj (Syringe)*) 2 mg IV Q4H PRN PRN Reason: PAIN Ondansetron HCl (Zofran Inj*) 4 mg IV Q4H PRN PRN Reason: NAUSEA/VOMITING Potassium Chloride (Klor Con Er Tab*) 20 meq PO DAILY WITH MEAL [facility] Last Admin: 09/24/16 07:31 Dose: 20 meq Prednisone (Deltasone Tab*) 15 mg PO DAILY WITH MEAL [facility] Last Admin: 09/24/16 07:31 Dose: 15 mg Vancomycin HCl (Vancomycin Cap*) 125 mg PO QID [facility] Last Admin: 09/24/16 07:31 Dose: 125 mg Vital Signs 09/23/16 09/23/16 09/23/16 09:28 15:26 20:00 Temperature 96.6 F Pulse Rate 67 Respiratory 20 19 20 Rate Blood Pressure 125/52 (mmHg) O2 Sat by Pulse 97 Oximetry 09/24/16 01:03 Temperature 97.5 F Pulse Rate 63 Respiratory 16 Rate Blood Pressure 151/57 (mmHg) O2 Sat by Pulse 96 Oximetry Oxygen Devices in Use Now: None Appearance: 86 yo F in nAD,oriented to self only Eyes: No Scleral Icterus, PERRLA Ears/Nose/Mouth/Throat: NL Teeth, Lips, Gums, Mucous Membranes Moist Neck: NL Appearance and Movements; NL JVP, Trachea Midline Respiratory: Symmetrical Chest Expansion and Respiratory Effort, Clear to Auscultation Cardiovascular: RRR, - - 2/6 DAMION Abdominal: No Hepatosplenomegaly, - - mild LLQ tenderness, no rebound, no guarding, BS+ Lymphatic: No Cervical Adenopathy Extremities: No Edema Skin: No Rash or Ulcers, No Nodules or Sclerosis Neurological: NL Muscle Strength and Tone Result Diagrams: 09/22/16 06:00 09/23/16 06:27 Additional Lab and Data: Lab Results 09/20/16 09/20/16 09/20/16 Range/Units 14:30 15:00 15:00 WBC 21.7 H (3.5-10.8) 10^3/ul RBC 5.39 (4.0-5.4) 10^6/ul Hgb 16.5 H (12.0-16.0) g/dl Hct 52 H (35-47) % MCV 96 (80-97) fL MCH 31 (27-31) pg MCHC 32 (31-36) g/dl RDW 15 (10.5-15) % Plt Count 246 (150-450) 10^3/ul MPV 9 (7.4-10.4) um3 Neut % (Auto) 91.9 H (38-83) % Lymph % (Auto) 2.2 L (25-47) % Craig % (Auto) 5.5 (1-9) % Eos % (Auto) 0 (0-6) % Baso % (Auto) 0.4 (0-2) % Absolute Neuts (auto) 20.0 H (1.5-7.7) 10^3/ul Absolute Lymphs (auto) 0.5 L (1.0-4.8) 10^3/ul Absolute Monos (auto) 1.2 H (0-0.8) 10^3/ul Absolute Eos (auto) 0 (0-0.6) 10^3/ul Absolute Basos (auto) 0.1 (0-0.2) 10^3/ul Absolute Nucleated RBC 0.01 10^3/ul Nucleated RBC % 0 Sodium 144 (133-145) mmol/L Potassium 4.3 (3.5-5.0) mmol/L Chloride 106 (101-111) mmol/L Carbon Dioxide 28 (22-32) mmol/L Anion Gap 10 (2-11) mmol/L BUN 77 H (6-24) mg/dL Creatinine 2.28 H (0.51-0.95) mg/dL Est GFR ( Amer) 26.1 (>60) Est GFR (Non-Af Amer) 20.3 (>60) BUN/Creatinine Ratio 33.8 H (8-20) Glucose 399 H (70-100) mg/dL Lactic Acid (0.5-2.0) mmol/L Calcium 10.1 (8.6-10.3) mg/dL Magnesium 2.7 (1.9-2.7) mg/dL Total Bilirubin 0.70 (0.2-1.0) mg/dL AST 16 (13-39) U/L ALT 13 (7-52) U/L Alkaline Phosphatase 56 (34-104) U/L C-Reactive Protein 82.84 H (< 5.00) mg/L Total Protein 7.7 (6.4-8.9) g/dL Albumin 4.0 (3.2-5.2) g/dL Globulin 3.7 (2-4) g/dL Albumin/Globulin Ratio 1.1 (1-3) Amylase 75 (29-103) U/L Lipase 57 (11.0-82.0) U/L Urine Color Susan Urine Appearance Turbid Urine pH 5 (5-9) Ur Specific Franklin 1.035 H (1.010-1.030) Urine Protein 2+(100 mg/dl) H (Negative) Urine Ketones Negative (Negative) Urine Blood 1+ H (Negative) Urine Nitrate Negative (Negative) Urine Bilirubin Negative (Negative) Urine Urobilinogen Negative (Negative) Ur Leukocyte Esterase 4+ H (Negative) Urine WBC (Auto) 3+(>20/hpf) H (Absent) Urine RBC (Auto) Trace(0-2/hpf) (Absent) Urine Bacteria 3+ H (Absent) Urine Glucose Negative (Negative) Urine Ascorbic Acid Not Reportable 09/20/16 Range/Units 15:00 WBC (3.5-10.8) 10^3/ul RBC (4.0-5.4) 10^6/ul Hgb (12.0-16.0) g/dl Hct (35-47) % MCV (80-97) fL MCH (27-31) pg MCHC (31-36) g/dl RDW (10.5-15) % Plt Count (150-450) 10^3/ul MPV (7.4-10.4) um3 Neut % (Auto) (38-83) % Lymph % (Auto) (25-47) % Craig % (Auto) (1-9) % Eos % (Auto) (0-6) % Baso % (Auto) (0-2) % Absolute Neuts (auto) (1.5-7.7) 10^3/ul Absolute Lymphs (auto) (1.0-4.8) 10^3/ul Absolute Monos (auto) (0-0.8) 10^3/ul Absolute Eos (auto) (0-0.6) 10^3/ul Absolute Basos (auto) (0-0.2) 10^3/ul Absolute Nucleated RBC 10^3/ul Nucleated RBC % Sodium (133-145) mmol/L Potassium (3.5-5.0) mmol/L Chloride (101-111) mmol/L Carbon Dioxide (22-32) mmol/L Anion Gap (2-11) mmol/L BUN (6-24) mg/dL Creatinine (0.51-0.95) mg/dL Est GFR ( Amer) (>60) Est GFR (Non-Af Amer) (>60) BUN/Creatinine Ratio (8-20) Glucose (70-100) mg/dL Lactic Acid 3.2 H* (0.5-2.0) mmol/L Calcium (8.6-10.3) mg/dL Magnesium (1.9-2.7) mg/dL Total Bilirubin (0.2-1.0) mg/dL AST (13-39) U/L ALT (7-52) U/L Alkaline Phosphatase (34-104) U/L C-Reactive Protein (< 5.00) mg/L Total Protein (6.4-8.9) g/dL Albumin (3.2-5.2) g/dL Globulin (2-4) g/dL Albumin/Globulin Ratio (1-3) Amylase (29-103) U/L Lipase (11.0-82.0) U/L Urine Color Urine Appearance Urine pH (5-9) Ur Specific Franklin (1.010-1.030) Urine Protein (Negative) Urine Ketones (Negative) Urine Blood (Negative) Urine Nitrate (Negative) Urine Bilirubin (Negative) Urine Urobilinogen (Negative) Ur Leukocyte Esterase (Negative) Urine WBC (Auto) (Absent) Urine RBC (Auto) (Absent) Urine Bacteria (Absent) Urine Glucose (Negative) Urine Ascorbic Acid Microbiology and Other Data: Microbiology 09/20/16 16:40 Nasal Screen MRSA (PCR)(DAWIT) - Final Nasal Mrsa Negative Assess/Plan/Problems-Billing Assessment: 86 yo F with h/o HTN, pacer, A. fib, on prednisone for h/o skin rash, presents with C. diff diarrhea - Patient Problems (1) C. difficile diarrhea Comment: Was septic on admission. cont PO Vanc x 14 days total (2) ARAMIS (acute kidney injury) Comment: due to dehydration secondary to above. resolved, stop IVF Monitor (3) Hypothyroid Comment: cont Synthroid (4) Hyperglycemia Comment: due to diet controlled DM (5) Atrial fibrillation Comment: h/o ,cont Amiodarone. (6) On prednisone therapy Comment: as per med records, due to skin rash. will cont current dose No evidence of rash on exam. (7) UTI (urinary tract infection) Comment: due to VRE. S/p 5 days of antibiotic tx. appreciate Dr. Live consult. no more tx necessary. Repeat UA from 09/22 shows no bacteria (8) DVT prophylaxis Comment: heparin sc. Status and Disposition: inpatient As per d/w daughter on 09/23/16 pt has h/o swallowing issues at [place]. No report of that at [facility], but will check speech eval. Possible d/c back to [place] later on today
[2016-09-24 10:25] VITALS: BP 155/61
--- NOTE | 2016-09-24 12:53 | DS ---
DISCHARGE SUMMARY: DATE OF ADMISSION: 09/20/16 DATE OF DISCHARGE: 09/24/16 PRIMARY CARE PHYSICIAN: Dr. Will from [facility]. DISCHARGE DIAGNOSES: 1. Clostridium difficile associated diarrhea. 2. Acute kidney injury due to dehydration due to above. SECONDARY DIAGNOSES: 1. History of AV node dysfunction status post pacemaker placement and questionable atrial fibrillation in the past. 2. History of coronary artery disease. 3. Dementia. 4. Aortic stenosis. 5. History of head and neck cancer. 6. History of smoking. 7. Hypertension. 8. Chronic obstructive pulmonary disease. 9. Hypothyroidism. MEDICATIONS AT DISCHARGE: Include: 1. Synthroid 50 mcg daily. 2. Lasix 20 mg to be started together with potassium chloride 20 mEq in approximately 7 days if okay with primary care physician. 3. Celexa 10 mg daily. 4. Amiodarone 200 mg daily. 5. Acetaminophen 1000 mg on p.r.n. basis. 6. Vancomycin 125 mg p.o. 4 times a day for a total of 12 days. 7. Norvasc 5 mg daily. 8. Prednisone 50 mg daily. The prednisone was apparently started for a rash in long term. LABORATORY DATA AND STUDIES PERFORMED DURING THE HOSPITAL STAY: Include: On 09/22/16: White blood cell count of 15.2, hemoglobin of 13.3, hematocrit of 42, and platelets of 186. On 09/23/16: Sodium of 139, potassium 3.0, chloride 104, carbon dioxide 29, BUN 20, and creatinine 0.82. Initial urinalysis showed +3 bacteria. A second urinalysis obtained 2 days later on 09/22/16 showed no bacteria, but +3 leukocyte esterase and no nitrites. The patient's initial urine cultures are positive for citrobacter for 25,000 colonies and VRE of 50,00 to 75, 000 colonies. The patient's stool was positive for C. diff. Blood cultures obtained this hospital stay were negative to date. Abdominal x-ray obtained on admission, impression: "No free air is identified. " CONSULTATION DURING THE HOSPITAL STAY: Dr. Live from [facility]. HOSPITALIZATION COURSE: Ms. Fenton is an 86-year-old female with history of significant dementia who presents being treated for C. diff and dehydration in the long term for a couple of days prior to presentation to the ED with acute kidney injury and C. diff associated diarrhea. The patient's creatinine on admission was 2.28. She also had questionable UTI. She had up to 75,000 colonies of VRE, but she is clinically urine incontinent that could have been contaminated. Nevertheless, she completed 5 days treatment with antibiotics and after she was seen by Dr. Live from Infectious Diseases, a repeat urinalysis showed no bacteria and she was deemed not to need any further treatment for her UTI. She continued to be treated with vancomycin for Clostridium difficile associated diarrhea as well as intravenous hydration. Her renal function resolved back to normal after intravenous hydration. She is to continue vancomycin for another 12 days. The patient used to be on furosemide and potassium chloride prior to her admission that was stopped due to dehydration. I suspect that the patient maybe able to restart it in approximately 1 week after evaluated by primary care provider. After discussing with patient's daughter and health care proxy, there was a question of patient having problems with swallowing because she has had problems with low appetite and low p.o. intake. A swallow evaluation was obtained prior to discharge and it showed that the patient is doing well with soft foods with a lots of gravy and thin liquids. PHYSICAL EXAMINATION AT THE TIME OF DISCHARGE: Please see daily progress notes. TIME SPENT: Approximately 45 minutes was spent on the discharge of this patient. Please note that this is a short summary of the patient's hospital stay, please refer to further medical records for details. CC: Dr. Will; Dr. Live* [id number]/CPS #: [id number] MTDD
== END 2016-09-24 13:10 | DRG 872 ==
LOC: ED 14:01 → MED 16:20
PROVIDERS: ADMIT Internal Medicine; ATTEND Internal Medicine
DX: A41.9 Sepsis, unspecified organism (principal); N17.9 Acute kidney failure, unspecified; A04.7 Enterocolitis due to Clostridium difficile; E87.0 Hyperosmolality and hypernatremia; E11.65 Type 2 diabetes mellitus with hyperglycemia; F03.90 Unspecified dementia, unspecified severity, without behavioral disturbance, psychotic disturbance, mood disturbance, and anxiety; I48.91 Unspecified atrial fibrillation; E86.0 Dehydration; I10 Essential (primary) hypertension; N39.0 Urinary tract infection, site not specified; Z88.2 Allergy status to sulfonamides; Z88.1 Allergy status to other antibiotic agents; E03.9 Hypothyroidism, unspecified; I25.10 Atherosclerotic heart disease of native coronary artery without angina pectoris; Z95.0 Presence of cardiac pacemaker; Z87.891 Personal history of nicotine dependence; I35.0 Nonrheumatic aortic (valve) stenosis; Z85.828 Personal history of other malignant neoplasm of skin; R32 Unspecified urinary incontinence; J44.9 Chronic obstructive pulmonary disease, unspecified; Z66 Do not resuscitate; Z79.52 Long term (current) use of systemic steroids
CPT/HCPCS: 36415; 74020; 80048; 80053; 81003; 81015; 82150; 83036; 83605; 83630; 83690; 83735; 84100; 85025; 86140; 87040; 87045; 87046; 87077; 87086; 87186; 87493; 87641; 87899; 93005; 99285; A9270-GY; G8996-GN-CJ; G8997-GN-CJ; G8998-GN-CJ; J0696; J1644; J3480; J3490; J7512

== ENCOUNTER 2016-11-30 08:23 | Emergency (ER) | payer MEDICARE, OTHER ==
--- NOTE | 2016-11-30 09:05 | RAD ---
HISTORY: Right hip pain status post fall COMPARISONS: September 01, 2013 VIEWS: 3, Frontal view of the pelvis with frontal and frog-leg views of the right hip FINDINGS: BONE DENSITY: There is diffuse osteopenia. BONES: There is no displaced fracture. JOINTS: There is mild osteoarthritis of the hips and SI joints bilaterally. ALIGNMENT: There is no dislocation. SOFT TISSUES: There is peripheral arterial calcification. OTHER FINDINGS: Degenerative changes are noted of the spine IMPRESSION: 1. OSTEOPENIA. 2. PERIPHERAL ARTERIAL DISEASE. 3. OSTEOARTHRITIS. 4. NO RADIOGRAPHIC EVIDENCE FOR HIP FRACTURE. X-RAYS MAY BE NEGATIVE WITH NONDISPLACED HIP FRACTURE, IF THERE IS PERSISTENT CLINICAL CONCERN, RECOMMEND CONSIDERATION OF MRI. IN THE SETTING OF CONTRAINDICATION TO MRI OR LIMITATION IN EMERGENT ACCESS TO MRI, CT WOULD BE SUGGESTED.
[2016-11-30 09:09] LABS: Hematocrit 37 % (35-47); Hemoglobin 12.1 g/dl (12.0-16.0); Mean Corpuscular HGB Conc 32 g/dl (31-36); Mean Corpuscular Hemoglobin 30 pg (27-31); Mean Corpuscular Volume 92 fL (80-97); Mean Platelet Volume 8 um3 (7.4-10.4); Red Blood Count 4.08 10^6/ul (4.0-5.4); Red Cell Distribution Width 14 % (10.5-15); White Blood Count 11.9 10^3/ul (3.5-10.8)
[2016-11-30 09:20] LABS: Albumin 3.6 g/dL (3.2-5.2); C Reactive Protein 14.05 mg/L (< 5.00); Calcium 9.1 mg/dL (8.6-10.3); EGFR African American 77.2 (>60); Globulin 2.9 g/dL (2-4); Total Bilirubin 0.5 mg/dL (0.2-1.0); Total Protein 6.5 g/dL (6.4-8.9)
[2016-11-30 09:27] LABS: Potassium 3.6 mmol/L (3.5-5.0)
--- NOTE | 2016-11-30 10:41 | RAD ---
HISTORY: Right hip pain COMPARISONS: Plain film dated November 28, 2016, CT dated August 10, 2016 TECHNIQUE: Multiple contiguous axial CT images are obtained of the pelvis, with coronal and sagittal multiplanar reconstructions, without intravenous contrast administration. FINDINGS: BONE DENSITY: There is diffuse osteopenia. BONES: There is no displaced fracture. JOINTS: There is mild osteoarthritis of the hips and SI joints. MUSCULATURE: Unremarkable ALIGNMENT: There is no dislocation. SOFT TISSUES: There is atherosclerosis of the abdominal aorta. There is diverticulosis of the colon. OTHER FINDINGS: Degenerative changes are noted of the spine. IMPRESSION: 1. OSTEOPENIA. 2. OSTEOARTHRITIS. 3. NO ACUTE OSSEOUS INJURY. THE DEGREE OF OSTEOPENIA MAY MAKE A NONDISPLACED FRACTURE RADIOGRAPHICALLY OCCULT. IF SYMPTOMS PERSIST, RECOMMEND REPEAT IMAGING. IF THERE IS PERSISTENT CLINICAL CONCERN FOR HIP FRACTURE, MRI MAY BE MORE SENSITIVE
--- NOTE | 2016-11-30 12:25 | ED ---
Octavio Thomas Janilya, scribed for Spencer Dobson MD on 11/30/16 at 0826 . Adult Trauma - HPI Summary HPI Summary: An 86 y/o female was BIBA to [facility] for sustaining a fall in a bathroom at [facility], where she is a resident. Per EMS, it was reported that she fell in a bathroom but was found back in her bed. Pt was not able to ambulate. At the ED when asked, pt states she is in "a bit of pain". She does not report anything more at this time. Pt has dementia and unable to provide full Hx. In addition, per EMS, [facility] was concerned for pt about possible c. diff infection. LEVEL 5 CAVEAT - UNABLE TO OBTAIN FULL HX DUE TO DEMENTIA - History of Current Complaint Stated Complaint: FALL Hx Obtained From: Patient Mechanism of Injury: Fall - Additional Pertinent History Primary Care Physician: [facility] - Allergy/Home Medications Allergies/Adverse Reactions: Allergies Allergy/AdvReac Type Severity Reaction Status Date / Time Sulfa Antibiotics Allergy Unknown Unknown Verified 08/10/16 19:54 Reaction Details Tetracycline Allergy Unknown Unknown Verified 08/10/16 19:54 Reaction Details Tobramycin Allergy Unknown Unknown Verified 08/10/16 19:54 Reaction Details PMH/Surg Hx/FS Hx/Imm Hx Previously Healthy: Yes Endocrine/Hematology History: Reports: Hx Thyroid Disease - hypothyroidism Cardiovascular History: Reports: Hx Auto Implanted Cardiovert Defib, Hx Coronary Artery Disease, Hx Pacemaker/ICD Sensory History: Reports: Hx Contacts or Glasses, Hx Hearing Problem Opthamlomology History: Reports: Hx Contacts or Glasses Neurological History: Reports: Hx Dementia - Cancer History Cancer Type, 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 Negative: Diabetes - Social History Lives: At [facility] Alcohol Use: None Substance Use Type: Reports: None Smoking Status (MU): Former Smoker Review of Systems - ROS Summary Review of Systems Summary: LEVEL 5 CAVEAT - UNABLE TO OBTAIN FULL HX DUE TO DEMENTIA Positive: Bruising All Other Systems Reviewed And Are Negative: No Physical Exam - Summary Physical Exam Summary: Vital signs: reviewed General: Patient is comfortable lying in stretcher with no signs of distress. She was BIB EMS. HEENT: within normal limits Lungs: CTA B/L CVS: S1 & S2 present. No murmurs appreciated. ABDOMEN: Soft, non-tender. No signs of distention. No rebound no guarding, and no masses palpated. Bowel sounds are normal. EXTREMITIES: Right LE externaly rottes with decrease ROM secondary to pain. Right hip with tenderness at palpation. No ecchymosis. NEURO: Alert and oriented x 3. No acute neurological deficits. Speech is normal and follows commands. SKIN: Dry and warm Triage Information Reviewed: Yes Vital Signs Reviewed: Yes Diagnostics - Laboratory Result Diagrams: 11/30/16 08:50 11/30/16 08:50 Lab Statement: Any lab studies that have been ordered have been reviewed, and results considered in the medical decision making process. - Radiology hip/pel xray Xray Interpretation: No Acute Changes - IMPRESSION: 1. OSTEOPENIA. 2. PERIPHERAL ARTERIAL DISEASE. 3. OSTEOARTHRITIS. 4. NO RADIOGRAPHIC EVIDENCE FOR HIP FRACTURE. X-RAYS MAY BE NEGATIVE WITH NONDISPLACED HIP FRACTURE, IF THERE IS PERSISTENT CLINICAL CONCERN, RECOMMEND CONSIDERATION OF MRI. IN THE SETTING OF CONTRAINDICATION TO MRI OR LIMITATION IN EMERGENT ACCESS TO MRI, CT WOULD BE SUGGESTED. Radiology Interpretation Completed By: Radiologist - CT pelvis CT Interpretation: No Acute Changes - IMPRESSION: 1. OSTEOPENIA. 2. OSTEOARTHRITIS. 3. NO ACUTE OSSEOUS INJURY. THE DEGREE OF OSTEOPENIA MAY MAKE A NONDISPLACED FRACTURE RADIOGRAPHICALLY OCCULT. IF SYMPTOMS PERSIST, RECOMMEND REPEAT IMAGING. IF THERE IS PERSISTENT CLINICAL CONCERN FOR HIP FRACTURE, MRI MAY BE MORE SENSITIVE CT Interpretation Completed By: Radiologist Adult Trauma Course/Dx - Course Assessment/Plan: An 86 y/o female was BIBA to [facility] for sustaining a fall in a bathroom at [facility], where she is a resident. Per EMS, it was reported that she fell in a bathroom but was found back in her bed. Pt was not able to ambulate. At the ED when asked, pt states she is in "a bit of pain". She does not report anything more at this time. Pt has dementia and unable to provide full Hx. In addition, per EMS, [facility] was concerned for pt about possible c. diff infection. LEVEL 5 CAVEAT - UNABLE TO OBTAIN FULL HX DUE TO DEMENTIA. Blood work within normal limits except for the following: WBC 11.9. Chloride 96 L. CO2 34 H. glucose 110 H. C-reactive proteins 14.05 H. Hip/ pelvis xray shows no significant changes. IMPRESSION: 1. OSTEOPENIA. 2. PERIPHERAL ARTERIAL DISEASE. 3. OSTEOARTHRITIS. 4. NO RADIOGRAPHIC EVIDENCE FOR HIP FRACTURE. X-RAYS MAY BE NEGATIVE WITH NONDISPLACED. HIP FRACTURE, IF THERE IS PERSISTENT CLINICAL CONCERN, RECOMMEND CONSIDERATION OF MRI. IN. THE SETTING OF CONTRAINDICATION TO MRI OR LIMITATION IN EMERGENT ACCESS TO MRI, CT WOULD. BE SUGGESTED. Pelvis CT shows no significant changes. IMPRESSION: 1. OSTEOPENIA. 2. OSTEOARTHRITIS. 3. NO ACUTE OSSEOUS INJURY. THE DEGREE OF OSTEOPENIA MAY MAKE A NONDISPLACED FRACTURE. RADIOGRAPHICALLY OCCULT. IF SYMPTOMS PERSIST, RECOMMEND REPEAT IMAGING. IF THERE IS. PERSISTENT CLINICAL CONCERN FOR HIP FRACTURE, MRI MAY BE MORE SENSITIVE. Since there is no fracture of this location in the xray, I decided to do a CT of the hip and pelvis, which is also negative. At this point, pt is ambulating with a walker. She is ambulating well w/ no pain. I decided not to do a head/spine CT since senior living reported no neck or head trauma. PE shows that there is no acute neuro deficits and no C-spine tenderness. Pt will be dx back to senior living w/ full precautions. Pt at this time is alert but not oriented. Pt is hemodynamically stable. - Diagnoses Differential Diagnosis/HQI/PQRI: Positive: Fracture, Dislocation, Hematoma(s), Sprain, Strain Provider Diagnoses: Accidental fall, Hip pain Discharge - Discharge Plan Condition: Stable Disposition: HOME Patient Education Materials: Fall Prevention (ED), Hip Pain (ED) Referrals: Jin Will DO, DO [Primary Care Provider] - 2 Days The documentation as recorded by the Octavio hager Janilya accurately reflects the service I personally performed and the decisions made by , Spencer Dobson MD.
[2016-11-30 12:45] VITALS: BP 163/84
== END 2016-11-30 12:44 | disposition home or self-care (01) ==
LOC: ED 08:23
DX: S70.00XA Contusion of unspecified hip, initial encounter (principal); M25.559 Pain in unspecified hip; W19.XXXA Unspecified fall, initial encounter; Y93.9 Activity, unspecified; Y92.9 Unspecified place or not applicable; Y99.9 Unspecified external cause status
CPT/HCPCS: 36415; 72192; 80053; 85025; 86140; 99283

== ENCOUNTER 2016-12-08 02:05 | Inpatient (IN) | payer MEDICARE, OTHER ==
[2016-12-08] MEDS ORDERED: Pantoprazole IV* 40 MG IV ONE (02:57)
[2016-12-08 05:05] LABS: Hematocrit 34 % (35-47); Hemoglobin 11.1 g/dl (12.0-16.0); Mean Corpuscular HGB Conc 32 g/dl (31-36); Mean Corpuscular Hemoglobin 29 pg (27-31); Mean Corpuscular Volume 90 fL (80-97); Mean Platelet Volume 8 um3 (7.4-10.4); Red Blood Count 3.81 10^6/ul (4.0-5.4); Red Cell Distribution Width 14 % (10.5-15); White Blood Count 11.1 10^3/ul (3.5-10.8)
[2016-12-08 05:19] LABS: Albumin 3.5 g/dL (3.2-5.2); BUN/Creatinine Ratio 24.1 (8-20); Calcium 8.8 mg/dL (8.6-10.3); EGFR African American 88.5 (>60); EGFR Non-African American 68.8 (>60); Globulin 2.6 g/dL (2-4); Potassium 3.4 mmol/L (3.5-5.0); Total Bilirubin 0.3 mg/dL (0.2-1.0); Total Protein 6.1 g/dL (6.4-8.9)
[2016-12-08] MEDS ORDERED: Iohexol 300* (CONTRAST) 10 ML SDV IV ONE (05:33)
--- NOTE | 2016-12-08 06:30 | ED ---
David Thomas Adam, scribed for Oleksandr Vang on 12/08/16 at 0258 . GI/ HPI - HPI Summary HPI Summary: Pt is an 86 year old female presenting with a GI bleed. She has dementia and is unable to provide a history. She reportedly had one episode of blood in her stool. She also presents with tenderness in the LLQ of her abdomen upon palpation. - History of Current Complaint Chief Complaint: EDGIBleed Time Seen by Provider: 12/08/16 02:38 Stated Complaint: GI BLEED Hx Obtained From: Medical Records Hx From Patient Unobtainable Due To: Dementia - Level 5 Caveat Onset/Duration: Started Hours Ago, Atraumatic Timing: Intermittent - 1 episode Severity: Moderate Current Severity: None Pain Intensity: 0 Location of Pain: LLQ Associated Signs and Symptoms: Positive: Blood w/Stool Aggravating Factor(s): Palpation Alleviating Factor(s): Nothing - Additional Pertinent History Primary Care Physician: EVERETT - Allergy/Home Medications Allergies/Adverse Reactions: Allergies Allergy/AdvReac Type Severity Reaction Status Date / Time Sulfa Antibiotics Allergy Unknown Unknown Verified 08/10/16 19:54 Reaction Details Tetracycline Allergy Unknown Unknown Verified 08/10/16 19:54 Reaction Details Tobramycin Allergy Unknown Unknown Verified 08/10/16 19:54 Reaction Details Home Medications: Home Medications Metoprolol Succinate XL TAB* [Toprol XL TAB*] 25 mg PO DAILY 12/08/16 [History Confirmed 12/08/16] Probiotic Product [Acidophilus] 1 cap PO DAILY 12/08/16 [History Confirmed 12/08] PMH/Surg Hx/FS Hx/Imm Hx Endocrine/Hematology History: Reports: Hx Thyroid Disease - hypothyroidism Cardiovascular History: Reports: Hx Auto Implanted Cardiovert Defib, Hx Coronary Artery Disease, Hx Pacemaker/ICD Sensory History: Reports: Hx Contacts or Glasses, Hx Hearing Problem Opthamlomology History: Reports: Hx Contacts or Glasses Neurological History: Reports: Hx Dementia - Cancer History Cancer Type, 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 - Surgical History Surgery Procedure, Year, and Place: pacemaker, bypass, part of mandible removed Infectious Disease History: No Infectious Disease History: Denies: Traveled Outside the [place] in Last 30 Days - Family History Known Family History: Positive: Unknown - Unable to obtain due to dementia ( Level 5 Caveat) Negative: Diabetes - Social History Occupation: Retired Lives: [facility] Alcohol Use: None Hx Substance Use: No Substance Use Type: Reports: None Hx Tobacco Use: Yes Smoking Status (MU): Former Smoker Review of Systems Negative: Fever Positive: Abdominal Pain, Other - GI bleed All Other Systems Reviewed And Are Negative: No - Comments Additional Review of Systems Comments: Level 5 Caveat due to dementia Physical Exam Triage Information Reviewed: Yes Vital Signs On Initial Exam: Initial Vitals Temp Pulse Resp BP Pulse Ox 97.3 F 67 18 213/72 95 12/08/16 02:06 12/08/16 02:06 12/08/16 02:06 12/08/16 02:06 12/08/16 02:06 Vital Signs Reviewed: Yes Completion Of Physical Exam Limited Due To: Dementia, Level 5 - Caveat Appearance: Positive: Well-Appearing, No Pain Distress Skin: Positive: Warm, Skin Color Reflects Adequate Perfusion, Dry Head/Face: Positive: Normal Head/Face Inspection Eyes: Positive: EOMI, JOSAFAT ENT: Positive: Normal ENT inspection Neck: Positive: Supple, Nontender Respiratory/Lung Sounds: Positive: Clear to Auscultation, Breath Sounds Present Cardiovascular: Positive: RRR, Pulses are Symmetrical in both Upper and Lower Extremities Abdomen Description: Positive: Other: - Tenderness in the LLQ. Maroon colored stools. Bowel Sounds: Positive: Present Musculoskeletal: Positive: Normal, Strength/ROM Intact Neurological: Positive: Other - Dementia - Ashwin Coma Scale Coma Scale Total: 14 Diagnostics - Vital Signs Vital Signs Temp Pulse Resp BP Pulse Ox 12/08/16 02:07 97.9 F 95 23 199/66 95 12/08/16 02:06 97.3 F 67 18 213/72 95 - Laboratory Result Diagrams: 12/08/16 04:50 12/08/16 04:50 Lab Statement: Any lab studies that have been ordered have been reviewed, and results considered in the medical decision making process. - Radiology CXR Xray Interpretation: No Acute Changes Radiology Interpretation Completed By: ED Physician MARYLU Course/Dx - Diagnoses Provider Diagnoses: GI bleed - Physician Notifications Discussed Care Of Patient With: Dr. Aaron (hospitalist) at approximately 06: 00. He accepts admission of the patient. Discharge - Discharge Plan Condition: Stable Disposition: ADMITTED TO [facility] documentation as recorded by the David hager Adam accurately reflects the service I personally performed and the decisions made by me, Oleksandr Vang.
[2016-12-08 07:16] LABS: Hematocrit 32 % (35-47); Hemoglobin 10.6 g/dl (12.0-16.0)
--- NOTE | 2016-12-08 07:47 | UC ---
Progress - Progress Note Progress Note: Called by Dr. Vang to order blood for patient. Reviewed chart and CT and discussed with Dr. Blake. Pt has type and screen ordered. Has repeat H/H ordered. Dr. Blake will follow.
--- NOTE | 2016-12-08 10:09 | RAD ---
Indication: GI bleeding. Contrast: Administered 76.0 ml of OMNIPAQUE 300 mgi/ml CT of the abdomen and pelvis was performed after IV contrast administration. Coronal and sagittal reconstructed images were obtained. No oral contrast was administered limiting evaluation of the bowel structures. The lung bases demonstrate no pleural fluid, nodules or masses. Heart is of normal size without evidence of pericardial effusion. Pacemaker leads are in place. Liver is normal in size. Small low density lesion in the periphery of the inferior right lobe of liver is present unchanged from previous exam of August 10, 2016. No other focal lesions or intrahepatic ductal dilatation is noted. The gallbladder demonstrates no calcified gallstones although there is a hyperenhancing wall noted. The common duct is not dilated. The pancreas demonstrates no mass or pancreatic duct dilatation. The spleen is normal in size. No adrenal lesions are noted although there appears to be bilateral adrenal hyperplasia. The kidneys demonstrate no hydronephrosis in either kidney. There is a left renal cyst measuring 2.9 cm. Lower pole cyst measuring 17 mm is noted. Atherosclerotic aorta is noted. No retroperitoneal lymphadenopathy is noted. There is calcification of the origin of the left renal artery as well as the celiac axis and superior mesenteric artery. No retroperitoneal lymphadenopathy is noted. No dilated loops of bowel are noted. Diverticulosis without definite evidence of diverticulitis is noted. No dilated loops of small bowel are noted. The urinary bladder is otherwise unremarkable. No free fluid is noted in the pelvis. No definite pelvic adenopathy is noted. IMPRESSION: ATHEROSCLEROTIC AORTA. NO EVIDENCE OF ABNORMAL MASSES OR FLUID COLLECTIONS ARE NOTED. THE COLON IS FILLED WITH STOOL. LIKELY TINY HEPATIC CYST OR HEMANGIOMA IN THE INFERIOR RIGHT LOBE OF LIVER UNCHANGED FROM PRIOR EXAM. NO OTHER MASSES OR FLUID COLLECTIONS ARE NOTED.
[2016-12-08] MEDS: NS 0.9% 1000 ML* 1,000 ML IV SCH ×2 (10:30→23:56)
[2016-12-08] MEDS: Metoprolol Succinate XL TAB* 25 MG PO SCH (10:31)
[2016-12-08] MEDS: predniSONE TAB* 10 MG PO SCH (10:31)
[2016-12-08] MEDS: Potassium Chlor TAB* 20 MEQ TAB.ER PO SCH (10:31)
[2016-12-08] MEDS: Lactobacillus Acidophilu (GG)* 1 CAP CAP PO SCH (10:31)
[2016-12-08] MEDS: Citalopram TAB* 10 MG PO SCH (10:31)
[2016-12-08] MEDS: Pantoprazole IV* 40 MG IV SCH (10:31)
[2016-12-08] MEDS: Levothyroxine TAB* 50 MCG TAB PO SCH (10:31)
--- NOTE | 2016-12-08 10:46 | RAD ---
Indication: GI bleeding. Single frontal view of the chest performed at 0318 hours was reviewed. Comparison is made with previous exam dated August 10, 2016. No mediastinal shift is noted. Patient status post tracer thoracotomy. Pacemaker leads are in place. No definite pleural fluid or pneumonia is noted. Curvilinear density is noted in the right lateral chest wall which is felt to represent a skin fold rather than a pneumothorax. Clinical correlation is suggested. IMPRESSION: NO ACTIVE CARDIOPULMONARY DISEASE IS NOTED. CURVILINEAR DENSITY IS NOTED IN THE RIGHT LATERAL CHEST FELT TO REPRESENT A SKIN FOLD RATHER THAN A PNEUMOTHORAX. CLINICAL CORRELATION IS SUGGESTED. REPEAT PA AND LATERAL VIEW OF THE CHEST COULD BE PERFORMED TO EXCLUDE PNEUMOTHORAX NECESSARY.
[2016-12-08 11:37] LABS: Hematocrit 35 % (35-47); Hemoglobin 11.4 g/dl (12.0-16.0)
--- NOTE | 2016-12-08 13:14 | HP ---
HISTORY AND PHYSICAL: DATE OF ADMISSION: 12/08/16 CHIEF COMPLAINT: Blood in her stool. HISTORY OF PRESENT ILLNESS: The patient is an 86-year-old woman, who primarily had a brown, incontinent stool at 11 p.m. at [facility]. At 1 a.m., she apparently had a bloody stool. According to EMS, it looked like a formed stool with some blood around it. They thought it might be from hemorrhoid but it was unclear. The patient herself is unaware because of significant dementia and cannot give us any history and has no complaints. In the hospital, she has had no bowel movements at all. PAST MEDICAL HISTORY: Significant for AV node dysfunction and pacemaker placement, coronary artery disease, dementia, aortic stenosis, head and neck cancer, smoking, hypertension, COPD, hypothyroidism. MEDICATIONS: 1. Prednisone 10 mg in the morning. 2. Probiotic 1 capsule daily. 3. Potassium chloride 20 mEq daily. 4. Metoprolol succinate 25 mg daily. 5. Synthroid 50 mcg daily. 6. Citalopram 10 mg in the morning. 7. Tylenol 1000 mg every 12 hours as needed. ALLERGIES: She has an allergy/adverse reaction to SULFA ANTIBIOTICS, TETRACYCLINE, and TOBRAMYCIN. FAMILY HISTORY: Unremarkable from the chart. SOCIAL HISTORY: From prior records, no tobacco, alcohol, or recreational drug use. She is a resident in [facility]. Her daughter, Nallely Soliz, is her healthcare proxy, number [phone]. REVIEW OF SYSTEMS: Unable to obtain from the patient because of dementia. PHYSICAL EXAMINATION GENERAL: Pleasant woman, lying in bed, in no acute distress. VITAL SIGNS: Temperature 97.9 degrees, heart rate 95 beats per minute, respiratory rate 23 breaths per minute, pulse ox 95% on room air, blood pressure 199/66. HEENT: Normocephalic, atraumatic. Pupils equal, round, and reactive to light. Moist mucous membranes. NECK: Supple. No JVD, bruits, palpable thyroid, or lymphadenopathy. CHEST: Clear to auscultation and percussion bilaterally. CARDIOVASCULAR: S1 and S2 appreciated. ABDOMEN: Positive bowel sounds in all 4 quadrants. Soft, nontender, and nondistended. No hepatosplenomegaly. EXTREMITIES: No cyanosis, clubbing, or edema. +2 peripheral pulses bilaterally. NEURO: Alert and oriented x3. Moves all extremities. SKIN: No rashes or abnormalities. DIAGNOSTIC STUDIES/LAB DATA: White count 11.1, hemoglobin 11.1, hematocrit 34 , platelets 278. INR is 0.89. Sodium 136, potassium 3.4, chloride 96, CO2 32, BUN 19, creatinine 0.79, glucose 101. Chest x-ray shows no apparent infiltrates. CAT scan preliminary report shows it was unremarkable. ASSESSMENT AND PLAN: 1. Gastrointestinal bleed. At this point, it is questionable decision, may just be a hemorrhoid. Her hemoglobin and hematocrit are fairly consistent with past ones. I will check it q.6 hours or if she has any significant bloody movements, we will call GI, but at this point we will wait to see how significant this is before we see if she needs a scope. 2. Dementia. Monitor the patient, currently on no medications. 3. Hypothyroidism. Stable. Continue Synthroid. 4. Hypertension. Fairly high at this point. We will give metoprolol and adjust medications accordingly. 5. FEN. N.p.o. in case of hospitalist intervention. 6. DVT prophylaxis. Sequential compression stockings. 7. The patient is a do not resuscitate. TIME SPENT: Over 75 minutes was spent on this H and P; more than 45 minutes which was spent in direct [id number] contact with the patient in evaluation and physical exam. CC: Sergio Reynoso * [id number]/[facility] #: [id number] MTDAaron
--- NOTE | 2016-12-08 14:34 | PN ---
Hospitalist Progress Note HOSPITALIST ADDENDUM Patient seen and examined at bedside. Pleasantly confused elderly lady, lying in bed in NAD. Abdome is soft, NT, with normal BS. No further BMs so far. CT reviewed, H/H remains stable. Will continue to monitor.
[2016-12-08 18:08] LABS: Hematocrit 37 % (35-47)
[2016-12-09] MEDS: Levothyroxine TAB* 50 MCG TAB PO SCH (06:10)
[2016-12-09 08:02] LABS: Hematocrit 35 % (35-47); Hemoglobin 11.3 g/dl (12.0-16.0)
[2016-12-09] MEDS: Potassium Chlor TAB* 20 MEQ TAB.ER PO SCH (10:11)
[2016-12-09] MEDS: Pantoprazole IV* 40 MG IV SCH (10:11)
[2016-12-09] MEDS: Citalopram TAB* 10 MG PO SCH (10:11)
[2016-12-09] MEDS: Lactobacillus Acidophilu (GG)* 1 CAP CAP PO SCH (10:11)
[2016-12-09] MEDS: Metoprolol Succinate XL TAB* 25 MG PO SCH (10:11)
[2016-12-09] MEDS: predniSONE TAB* 10 MG PO SCH (10:11)
--- NOTE | 2016-12-09 10:47 | DS ---
CC: Dr. Femi Will [facility] DATE OF ADMISSION: 12/08/2016. DATE OF DISCHARGE: 12/09/2016. DISCHARGE DIAGNOSIS: Pain with hematochezia, likely a diverticular bleed, self- limited. SECONDARY DIAGNOSES: 1. AV node dysfunction, status post pacemaker. 2. Coronary artery disease. 3. Dementia. 4. Aortic stenosis. 5. Prior history of head and neck cancer. 6. Hypertension. 7. COPD. 8. Hypothyroidism. MEDICATIONS: 1. Acetaminophen 1000 mg p.o. q.12 hours prn pain. 2. Citalopram 10 mg p.o. q.a.m. 3. Levothyroxine 50 mcg p.o. daily. 4. Metoprolol Succinate 25 mg p.o. daily. 5. Potassium Chloride 20 mg p.o. daily. 6. Prednisone 15 mg p.o. daily. 7. Probiotic one capsule p.o. daily. HOSPITAL COURSE: Ms. Fenton is an 86-year-old lady with a past medical history as stated above wh o on December 08 around 1:00 a.m. had a bloody stool and was sent to the emergency room for further e valuation. As per EMS, it looks like the patient had formed stool with some blood around it. The p atient has significant dementia and could not give any more details. For more information, I refer you to her history and physical from Dr. Aaron on December 08. The patient was admitted as observation for a possible GI bleed. CT of the abdomen and pelvis was performed and it showed atherosclerotic aorta with no evidence of a bnormal masses or fluid collections noted. The colon was filled with stool. There were tiny hepati c cysts or hemangiomas in the inferior right lobe of the liver, unchanged from her prior exam from 2015. No other masses or fluid collections were noted. While in the hospital, the patient had no further episodes of hematochezia. Her hemoglobin has nehemiah ined stable around 11.5. She has been able to tolerate diet. A stool for occult blood was positive . As the patient has had no further episodes, is tolerating diet, her H and H remained stable, I belie ve she is stable for discharge at this point. If her episodes recur, she could be seen by Gastroent erology, but I believe that at this point with the self-limited episode, a colonoscopy is not indica nelly. She does not have any signs of colitis at this point. Her vital signs are stable with no feve r. She has no leukocytosis. The plan is for her to return to [facility] today. PHYSICAL EXAMINATION: General: The patient is a pleasant, elderly lady sitting up in bed in no acu te distress. Vital Signs: Temperature 98.0, heart rate 66, respiratory rate 16, oxygen saturation 165/77. CVS: Normal S1, S2. Regular rate and rhythm with systolic murmur. Chest: Breath sounds bilaterally with no added sounds. Abdomen: Soft, nontender, nondistended, bowel sounds are present . Rectal: The patient has no gross signs of bleed or any gross external hemorrhoids. I did not perf orm finger examination as the patient had it already done in the emergency room and we already know that her stool was positive for blood. Extremities: No edema. Neuro: She is alert and oriented ti mes one to self only. Able to move all four extremities. DIET: Regular diet. ACTIVITY: As tolerated. DISPOSITION: To [facility]. STATUS WHILE IN THE HOSPITAL: Observation. Please keep in mind this is a summarized version of this patient's hospital stay. If you need more i nformation, please feel free to call me at or please obtain the full medical record. Approximately 45 minutes were spent to complete this discharge. [id number]/[facility] #: [id number]
[2016-12-09] MEDS ORDERED: Dextrose 50% Syringe 50 ML* 25 GM/50 ML SYRINGE IV PUSH PRN (16:29)
[2016-12-09] MEDS: Insulin LISPRO* 1 UNITS UNIT SUBCUT SCH ×2 (17:28→22:36)
[2016-12-10] MEDS: Levothyroxine TAB* 50 MCG TAB PO SCH (06:12)
[2016-12-10] MEDS: Insulin LISPRO* 1 UNITS UNIT SUBCUT SCH ×4 (07:55→20:23)
[2016-12-10 08:19] LABS: Hematocrit 33 % (35-47); Hemoglobin 10.6 g/dl (12.0-16.0); Mean Corpuscular HGB Conc 33 g/dl (31-36); Mean Corpuscular Hemoglobin 29 pg (27-31); Mean Corpuscular Volume 90 fL (80-97); Mean Platelet Volume 8 um3 (7.4-10.4); Red Blood Count 3.61 10^6/ul (4.0-5.4); Red Cell Distribution Width 14 % (10.5-15); White Blood Count 11.1 10^3/ul (3.5-10.8)
[2016-12-10] MEDS: Pantoprazole IV* 40 MG IV SCH (09:13)
[2016-12-10] MEDS: Lactobacillus Acidophilu (GG)* 1 CAP CAP PO SCH (09:14)
[2016-12-10] MEDS: predniSONE TAB* 10 MG PO SCH (09:14)
[2016-12-10] MEDS: Metoprolol Succinate XL TAB* 25 MG PO SCH (09:14)
[2016-12-10] MEDS: Citalopram TAB* 10 MG PO SCH (09:14)
[2016-12-10] MEDS: Potassium Chlor TAB* 20 MEQ TAB.ER PO SCH (09:14)
--- NOTE | 2016-12-10 12:50 | PN ---
Subjective Date of Service: 12/10/16 Interval History: HOSPITALIST PROGRESS NOTE Patient seen and examined at bedside. She offers no complaints. As per RN, she had multiple small and one large bloody BM overnight. She denies abodminal pain. Family History: Unchanged from Admission Social History: Unchanged from Admission Past Medical History: Unchanged from Admission Objective Active Medications: Citalopram Hydrobromide (Celexa Tab*) 10 mg PO QAM [facility] Last Admin: 12/10/16 09:14 Dose: 10 mg Dextrose (D50w Syringe 50 Ml*) 12.5 gm IV PUSH .FOR FS < 60 - SS PRN PRN Reason: FS < 60 Insulin Human Lispro (Humalog*) 0 units SUBCUT ACHS [facility] PRN Reason: Protocol Last Admin: 12/10/16 12:20 Dose: 2 unit Lactobacillus Rhamnosus (Culturelle*) 1 cap PO DAILY [facility] Last Admin: 12/10/16 09:14 Dose: 1 cap Levothyroxine Sodium (Synthroid Tab*) 50 mcg PO 0600 [facility] Last Admin: 12/10/16 06:12 Dose: 50 mcg Metoprolol Succinate (Toprol Xl Tab*) 25 mg PO DAILY [facility] Last Admin: 12/10/16 09:14 Dose: 25 mg Pantoprazole Sodium (Protonix Iv*) 40 mg IV DAILY [facility] Last Admin: 12/10/16 09:13 Dose: 40 mg Potassium Chloride (Klor Con Er Tab*) 20 meq PO DAILY [facility] Last Admin: 12/10/16 09:14 Dose: 20 meq Prednisone (Deltasone Tab*) 10 mg PO QAM [facility] Last Admin: 12/10/16 09:14 Dose: 10 mg Vital Signs 12/09/16 12/09/16 12/09/16 15:15 19:20 23:12 Temperature 97.8 F 97.9 F 98.2 F Pulse Rate 73 80 65 Respiratory 20 16 16 Rate Blood Pressure 179/53 145/61 155/53 (mmHg) O2 Sat by Pulse 97 97 97 Oximetry 12/10/16 12/10/16 03:24 07:20 Temperature 98.2 F Pulse Rate 69 61 Respiratory 16 16 Rate Blood Pressure 148/53 153/50 (mmHg) O2 Sat by Pulse 98 99 Oximetry Oxygen Devices in Use Now: None Appearance: Elderly lady lying in bed in NAD. Eyes: No Scleral Icterus Ears/Nose/Mouth/Throat: Mucous Membranes Moist Neck: Trachea Midline Respiratory: Symmetrical Chest Expansion and Respiratory Effort, Clear to Auscultation Cardiovascular: RRR - Normal S1 and S2, +SM Abdominal: NL Sounds; No Tenderness; No Distention Neurological: - - AAOx1 (self), LYNN Lines/Tubes/Other Access: Clean, Dry and Intact Peripheral IV Nutrition: Taking PO's Result Diagrams: 12/10/16 08:07 12/08/16 04:50 Assess/Plan/Problems-Billing Assessment: Mrs. Fenton is an 86yo F with PMH of LGI bleed, diverticulitis, type 2 DM, CAD , s/p pacer, dementia, , HTN, COPD, who presented to ED with painless hematochezia. - Patient Problems (1) Lower GI bleed Comment: - Had more blood in the stool last night. - Denies pain. - CT reviewed - no gross abnormalities. - Suspect diverticular in nature again, like in July 2016. - Initial plan was to d/c back to [facility] yesterday, but due to insurance issues she had to stay. Now that she had more blood in the stool, will continue to watch her and request GI input. (2) Blood loss anemia Comment: - H/H 10.6/33 today - continue to monitor. (3) Diabetes Comment: - Continue Lispro SS. (4) Hypothyroid Comment: - Continue Synthroid. (5) HTN (hypertension) Comment: - Continue Metoprolol. (6) DVT prophylaxis Comment: - Pharmacological prophylaxis contraindicated in the setting of GI bleed. - SCDs. (7) DNR (do not resuscitate) Status and Disposition: Inpatient.
[2016-12-10 19:36] LABS: Hematocrit 32 % (35-47)
--- NOTE | 2016-12-10 20:52 | CONS ---
GASTROENTEROLOGY CONSULT: DATE: 12/10/16 CONSULTING PHYSICIAN: Lucia Baez REASON FOR CONSULTATION: Rectal bleeding. HISTORY: This 86-year-old woman with moderately advanced dementia, residing at [facility] for several years, was brought to the emergency room as blood was observed in her stool. She has not had any vomiting, fever, or reports of dizziness or syncope, but just that blood was seen. That observation and then the stool in the hospital was also described as blood surrounding a formed stool. Since admission, she has had variable descriptions of blood around the stool or normal stool or just small dabs of stool this morning, it did not have any overt blood. Hemoccult submitted from the ER was positive, though exactly how and what was submitted is not available. Stool submitted today from an atraumatic rectal exam was positive and very dark and greasy. While here, her pulse has been in the 70s. She has been afebrile and her hemoglobin and hematocrit have not really changed and her BUN has been 24 and 19 which has a baseline around 20. She had a similar presentation around [place] time and at that time, bleeding was not profuse and no workup was pursued after conversation with the patient's daughter who lives in [place]. The patient's daughter relates that loose stools have been a frequent problem for the patient going back several years even before the C. difficile which was treated in September with 2 courses of antibiotics, second being 2 weeks of vancomycin. The patient had a colonoscopy, but prior to 2002, when she moved here in longterm with her family. Her daughter and son-in-law subsequently moved to [place] 3 years ago. PAST MEDICAL HISTORY: 1. Coronary artery disease. 2. Peripheral vascular disease, status post bypass, left leg. 3. Dementia. 4. Status post appendectomy. 5. COPD. 6. Status post pacemaker insertion. 7. Status post hysterectomy - details unobtainable. MEDICATIONS: At home: Citalopram 10, Levothyroxine 50, Metoprolol 25, Prednisone 15, Probiotic capsule. SOCIAL HISTORY: She is , living at the correction. Her daughter, Carlota Soliz, lives in [place], [place], telephone [phone]. REVIEW OF SYSTEMS: No history of recent chest pain, hemoptysis, or fever. 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 Giron at that time. That stayed in a couple of months. There was reportedly a MRSA infection at that site. EXAM: She is a frail, pale elderly woman with no complaints at this time. HEENT exam shows no adenopathy or icterus. Breath sounds are diminished with some chronic crackles and rhonchi, but she is in no distress whatsoever. Heart sounds are regular. Breasts are without gross masses. The abdomen is minimally rounded with an appendectomy scar and a vertical hysterectomy scar. There is no overt hernia. Perianal inspection is unremarkable with no asymmetry , scar, or fistula. Digital rectal shows tone diminished slightly, consistent with age and there is a large amount of gummy, dark stool submitted for Hemoccult. Extremities show no edema. She is cooperative and assists in positioning. LABS: Today, hemoglobin 10.6, hematocrit 33, MCV 90, white count 11.1, platelets 274. INR 0.89 on 12/08/16. BUN 19, creatinine 0.79, also 12/08/16. IMPRESSION: This 86-year-old woman with advanced dementia has been noted to pass blood in the stool over the last day to day and a half. Her hemoglobin has not fallen significantly; however, and thus far, bleeding has not been a physiologic threat to her. A diagnostic procedure such as colonoscopy is unlikely to be therapeutic and the results are unlikely to really guide therapy in any meaningful way. Prepping her for colonoscopy would be inordinately arduous, burdensome, and likely risky. An alternate strategy would be to obtain a CBC weekly and transfuse as needed. Seeing blood when she has a bowel movement 2 or 3 times a day even if it were to be turning the bowl deep pink would probably not indicate a substantial bleed as a small amount of blood can create quite a display. Passing pure clots and extra movements that are pure blood would be a different matter, but again, blood passed along with her usual pattern would not necessarily indicate high probability of a transfusion being needed that day or within 24 hours. A separate issue may be that characteristically loose stools which can make for more visualization of blood. She could have microscopic colitis, but at this time, a workup is not proposed. Imodium p.r.n. or even a regular schedule of Imodium or Questran could be considered. [id number]/[facility] #: [id number] [facility]
[2016-12-11] MEDS: Levothyroxine TAB* 50 MCG TAB PO SCH (04:06)
[2016-12-11] MEDS: hydrALAZINE IV* 20 MG/ML VIAL IV PRN (04:06)
[2016-12-11 06:43] LABS: Hematocrit 34 % (35-47)
[2016-12-11] MEDS: Insulin LISPRO* 1 UNITS UNIT SUBCUT SCH ×4 (07:59→19:45)
[2016-12-11] MEDS: predniSONE TAB* 10 MG PO SCH (08:38)
[2016-12-11] MEDS: Lactobacillus Acidophilu (GG)* 1 CAP CAP PO SCH (08:38)
[2016-12-11] MEDS: Citalopram TAB* 10 MG PO SCH (08:39)
[2016-12-11] MEDS: Metoprolol Succinate XL TAB* 25 MG PO SCH ×2 (08:39→19:57)
[2016-12-11] MEDS: Potassium Chlor TAB* 20 MEQ TAB.ER PO SCH (08:39)
[2016-12-11] MEDS: Pantoprazole IV* 40 MG IV SCH (08:40)
[2016-12-11] MEDS ORDERED: Morphine INJ* 2 MG/ML 1 ML SYRINGE IV PRN (10:06)
[2016-12-11] MEDS ORDERED: Metoprolol Tartrate IV* 1 MG/ML 5 ML VIAL IV PRN (12:26)
--- NOTE | 2016-12-11 12:31 | PN ---
Subjective Date of Service: 12/11/16 Interval History: HOSPITALIST PROGRESS NOTE Patient seen and examined at bedside. She offers no complaints at this time, but as per RN, c/o chest pain overnight. Had a BM earlier today with no blood. Family History: Unchanged from Admission Social History: Unchanged from Admission Past Medical History: Unchanged from Admission Objective Active Medications: Citalopram Hydrobromide (Celexa Tab*) 10 mg PO QAM [facility] Last Admin: 12/11/16 08:39 Dose: 10 mg Dextrose (D50w Syringe 50 Ml*) 12.5 gm IV PUSH .FOR FS < 60 - SS PRN PRN Reason: FS < 60 Hydralazine HCl (Apresoline Iv*) 10 mg IV Q4H PRN PRN Reason: Systolic >170 Last Admin: 12/11/16 04:06 Dose: 10 mg Insulin Human Lispro (Humalog*) 0 units SUBCUT ACHS [facility] PRN Reason: Protocol Last Admin: 12/11/16 07:59 Dose: Not Given Lactobacillus Rhamnosus (Culturelle*) 1 cap PO DAILY [facility] Last Admin: 12/11/16 08:38 Dose: 1 cap Levothyroxine Sodium (Synthroid Tab*) 50 mcg PO 0600 [facility] Last Admin: 12/11/16 04:06 Dose: 50 mcg Metoprolol Succinate (Toprol Xl Tab*) 25 mg PO DAILY [facility] Last Admin: 12/11/16 08:39 Dose: 25 mg Morphine Sulfate (Morphine Inj (Syringe)*) 2 mg IV Q4H PRN PRN Reason: PAIN Pantoprazole Sodium (Protonix Iv*) 40 mg IV DAILY [facility] Last Admin: 12/11/16 08:40 Dose: 40 mg Potassium Chloride (Klor Con Er Tab*) 20 meq PO DAILY [facility] Last Admin: 12/11/16 08:39 Dose: 20 meq Prednisone (Deltasone Tab*) 10 mg PO QAM [facility] Last Admin: 12/11/16 08:38 Dose: 10 mg Vital Signs 12/11/16 12/11/16 12/11/16 07:34 08:00 11:15 Temperature 97.5 F 97.3 F Pulse Rate 95 129 Respiratory 16 16 18 Rate Blood Pressure 157/69 132/50 (mmHg) O2 Sat by Pulse 97 96 Oximetry Oxygen Devices in Use Now: None Appearance: Pleasant elderly lady sitting up in a chair in NAD. Eyes: No Scleral Icterus Ears/Nose/Mouth/Throat: Mucous Membranes Moist Neck: Trachea Midline Respiratory: Symmetrical Chest Expansion and Respiratory Effort, Clear to Auscultation Cardiovascular: - - Normal S1 and S2, irregularly irregular Abdominal: NL Sounds; No Tenderness; No Distention Neurological: - - AAOx1 (self), LYNN Lines/Tubes/Other Access: Clean, Dry and Intact Peripheral IV Nutrition: Taking PO's Result Diagrams: 12/11/16 06:05 12/08/16 04:50 Assess/Plan/Problems-Billing Assessment: Mrs. Fenton is an 86yo F with PMH of LGI bleed, diverticulitis, type 2 DM, CAD , s/p pacer, dementia, , HTN, COPD, who presented to ED with painless hematochezia. - Patient Problems (1) Chest pain Comment: - Patient denies chest pain now, but troponin is trending up. - Will transfer to Telemetry and check serial troponins. - D/w daughter (Nallely Soliz [phone]) and updated about patient change in condition. She is very clear her mother would not want any aggressive measures pursued and she made her wishes known to her daughter in the past. She felt her parents had aggressive measures perfomed and she was adamant about not having the same fate. - Anticoagulation contraindicated in the setting of GI bleed. - Morphine and NTG as needed for pain. (2) Lower GI bleed Comment: - As per RN, she had BM without blood earlier today. - Denies pain. - CT reviewed - no gross abnormalities. - GI input appreciated. - Daughter in agreement with no colonoscopy and weekly CBC at [facility] with PRN transfusion. (3) Blood loss anemia Comment: - H/H remains stable. (4) Diabetes Comment: - Continue Lispro SS. (5) Hypothyroid Comment: - Continue Synthroid. (6) HTN (hypertension) Comment: - Increase Metoprolol to BID. (7) DVT prophylaxis Comment: - Pharmacological prophylaxis contraindicated in the setting of GI bleed. - SCDs. (8) DNR (do not resuscitate) Status and Disposition: Inpatient. Palliative care consult requested.
[2016-12-11] MEDS ORDERED: Nitroglycerin TAB 0.4 MG* 0.4 MG TAB SL PRN (12:36)
--- NOTE | 2016-12-11 12:41 | PN ---
Hospitalist Progress Note HOSPITALIST ADDENDUM This is a late entry for 12/09/16. Patient was seen and examined and the documentation is on her discharge summary.
[2016-12-11] MEDS ORDERED: Metoprolol Succinate XL TAB* 25 MG PO ONE (13:58)
--- NOTE | 2016-12-11 21:50 | CONS ---
PALLIATIVE CARE CONSULTATION: DATE OF CONSULT: 12/11/16 PRIMARY CARE PHYSICIAN: Femi Will DO. REQUESTING PHYSICIAN FOR CONSULTATION: Lucia Baez MD. HOSPITAL COURSE: This is an 86-year-old female who presented to the emergency room on the with GI bleeding. 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 She was admitted to the hospitalist service for GI bleed. There was concern that maybe this was just a simple hemorrhoidal bleed. GI was involved in a consultation on the . Dr. Brar felt that since her hemoglobin has not fallen significantly that it is not a physiologic threat to her and a diagnostic procedure would unlikely provide any therapeutic benefit and that prepping her for colonoscopy may be more burdensome than it would be beneficial. He discussed monitoring her CBC routinely and transfusing as indicated. With her advanced dementia and her GI bleed, the palliative care service got involved and she is eligible for hospice for her GI bleed and secondary diagnosis with advanced dementia and a comorbidity of aortic stenosis. I unfortunately was unable to have a meaningful conversation with the patient and was unable to get in touch with the daughter, Nallely, unable to obtain the review of systems. PAST MEDICAL HISTORY: 1. Aortic stenosis, unclear of the extent. 2. Moderate to severe dementia. 3. History of dysphagia. 4. COPD. 5. Coronary artery disease, status post bypass, 1998. 6. History of pacemaker placement. 7. History of stroke in 2004. 8. Hypertension. 9. Hypothyroidism. INPATIENT MEDICATIONS: 1. Citalopram 10 mg daily. 2. Lispro sliding scale. 3. Lactobacillus 1 cap daily. 4. Levothyroxine 50 mcg daily. 5. Metoprolol succinate 25 mg p.o. b.i.d. 6. Morphine 2 mg every 4 hours as needed. 7. Pantoprazole 40 mg IV daily. 8. Potassium chloride 20 mEq daily. 9. Hydralazine 10 mg IV q.4 hours. 10. Prednisone 10 mg q.a.m. ALLERGIES: SULFA, TETRACYCLINE, TOBRAMYCIN. FAMILY HISTORY: Unable to obtain. SOCIAL HISTORY: The patient resides at [facility]. Her MOLST form is a DNR/ DNI. Her healthcare proxy is her daughter, Nallely Soliz, phone number . REVIEW OF SYSTEMS: Unable to obtain. PHYSICAL EXAM: Temperature 98.3, pulse rate 70, respiratory rate 16, oxygen saturation 96% on room air, blood pressure 96/55. General: No acute distress, resting comfortably, frail elderly female. HEENT: Neck supple. Protruding tongue. No lymphadenopathy. Oropharynx: Mucous membranes moist. Pupils equal , round, reactive. Anicteric. Head normocephalic. Cardiac: Harsh systolic murmur, most prominent over the right sternal base. Respiratory: Diminished breath sounds. No wheezes, rhonchi, or rales. Abdomen: Soft, nontender, nondistended. Extremities: No clubbing, cyanosis, or edema. Neurologic: No focal neurologic deficits. Alert and oriented x1. Oriented to self only. DIAGNOSTIC STUDIES/LAB DATA: Hemoglobin has remained stable at . ASSESSMENT: This is an 86-year-old female with past medical history of moderate to advanced dementia with aortic stenosis and now presenting with a GI bleed. It is unclear the etiology behind her GI bleed, but the thought of doing procedure for an 86-year-old with her comorbidities, risks outweigh the benefits. The patient is eligible for hospice with principal diagnosis of a GI bleed with comorbidities of advanced dementia and aortic stenosis, and agree with the patient being discharged back to [facility] with hospice. I will follow up with Emili, school social worker, to make sure that the paperwork was submitted. Thank you for this consultation. TIME SPENT: Greater than 60 minutes spent doing the consultation, more than half the time spent in direct patient contact. CC: Femi Will DO * [id number]/[place] #: [id number] [facility] MEDICAL CENTERAaron
[2016-12-12] MEDS: hydrALAZINE IV* 20 MG/ML VIAL IV PRN (00:29)
[2016-12-12] MEDS: Levothyroxine TAB* 50 MCG TAB PO SCH (05:21)
[2016-12-12 07:35] VITALS: BP 157/50
[2016-12-12] MEDS: Insulin LISPRO* 1 UNITS UNIT SUBCUT SCH (08:18)
[2016-12-12] MEDS: Pantoprazole IV* 40 MG IV SCH (08:32)
[2016-12-12] MEDS: Potassium Chlor TAB* 20 MEQ TAB.ER PO SCH (08:32)
[2016-12-12] MEDS: predniSONE TAB* 10 MG PO SCH (08:33)
[2016-12-12] MEDS: Lactobacillus Acidophilu (GG)* 1 CAP CAP PO SCH (08:33)
[2016-12-12] MEDS: Metoprolol Succinate XL TAB* 25 MG PO SCH (08:33)
[2016-12-12] MEDS: Citalopram TAB* 10 MG PO SCH (08:33)
--- NOTE | 2016-12-12 11:51 | DS ---
ADDENDUM NOW INCLUDED ON THIS REPORT DISCHARGE SUMMARY ADDENDUM: DATE OF ADMISSION: 12/08/16 DATE OF DISCHARGE: 12/12/16 PRIMARY CARE PROVIDER: Dr. Femi Will from [facility]. DISCHARGE DIAGNOSES: 1. Pain with hematochezia, most likely due to diverticular bleed that was self - limited. 2. Mild anemia due to acute gastrointestinal bleed as above. 3. Most likely unstable angina with elevation of troponin. SECONDARY DIAGNOSES: 1. Dementia. 2. History of atrioventricular node dysfunction, status post pacemaker. 3. Coronary artery disease. The patient had a mild elevation of troponin of 0.2 with chest pain upon arrival to the hospital. Suspect an episode of unstable angina. 4. Aortic stenosis. 5. Prior history of head and neck cancer. 6. Hypertension. 7. Chronic obstructive pulmonary disease, not on oxygen. 8. Hypothyroidism. MEDICATIONS AT DISCHARGE: Include: 1. Acetaminophen on a p.r.n. basis. 2. Celexa 10 mg daily. 3. Synthroid 50 mcg daily. 4. Metoprolol succinate 25 mg daily. 5. Potassium chloride 20 mEq daily. 6. Acidophilus 1 capsule daily. 7. Prednisone 10 mg daily. CONSULTATIONS DURING THE HOSPITAL STAY: Included: 1. Dr. Brar from Gastroenterology. 2. Dr. Pastrana from Palliative Care. HOSPITALIZATION COURSE: Ms. Fenton had most likely diverticular bleed at admission. On 12/09/16, when she was about to be discharged home after initial 24- hour observation, she still had several episodes of bloody stools and her discharge was held. Please see details dictated by Dr. Baez on 12/09/16. At this point, Dr. Baez consulted Dr. Brar, who recommended conservative approach. The patient was not a candidate for elective endoscopies due to her advanced dementia and advanced age. For the next several days, the patient did well. Her GI bleed appeared to have resolved and with stable hemoglobin at discharge. At this point, it was noted the patient had severe dementia and after Dr. Baez discussed the issues that revolved during the hospital stay with the patient's healthcare proxy, Nallely, it was recommended for the patient to have a palliative care evaluation. Dr. Pastrana saw the patient on 12/11/16 and stated that patient is a good candidate and acceptable candidate for hospice with the [facility]. On 12/12/16, the patient is being discharged back to [facility] where she is a resident of. She is recommended to be referred to hospice at discharge. I spoke with the patient's doctor and surrogate, Nallely, prior to the patient's discharge. Nallely requested for the patient to be do not resuscitate, do not intubate, as well as comfort care. Nallely also agreed with do not rehospitalize unless severe symptoms cannot be otherwise controlled. LABORATORY DATA: The patient's lab work at discharge included: 1. On 12/11/16, the patient's hemoglobin was 11, hematocrit 34. 2. The patient's troponin peaked at 0.22, and thought to be most likely due to unstable angina that resolved spontaneously. The patient was not treated with anticoagulation due to her GI bleed. PHYSICAL EXAMINATION: Blood pressure 157/50, heart rate of 65 and regular, respiratory rate 17, oxygen saturation 93% on room air, temperature is 98.1. General: This a very pleasant 86-year-old female who is in no acute distress. The patient is oriented to self only. HEENT: Head is atraumatic, normocephalic. Eyes: Extraocular muscles intact. Pupils equal and reactive to light and accommodation. Oropharynx clear. Mucosa moist. Neck: Supple. No JVD, no bruit bilaterally. Cardiovascular: Regular rate and rhythm with 2/6 systolic ejection murmur on auscultation of the left upper sternal border. Respiratory: Clear to auscultation bilaterally. Abdomen: Soft, nontender. Bowel sounds present in all 4 quadrants. Extremities: There is no edema. Pulses +2 bilaterally. No clubbing or cyanosis. Please note this is a short summary of the patient's hospital stay. Please refer to further medical records for details. TIME SPENT: Approximately 35 minutes was spent on the patient's discharge. DISCHARGE SUMMARY: ADDENDUM: Please note that the patient has had a swallow evaluation prior to her discharge as she was okayed for nectar thick liquids, no straws and pureed solids. Thus, recommendations are being sent with the patient's [facility] documentation at discharge. CC: [facility]; Dr. Will; Dr. Brar; Dr. Pastrana* [id number]/[facility] #: [id number] A- [id number]/[facility] #: [id number] MELISSA
--- NOTE | 2016-12-12 22:14 | DS ---
DISCHARGE SUMMARY:* ADDENDUM: Please note that the patient has had a swallow evaluation prior to her discharge as she was okayed for nectar thick liquids, no straws and pureed solids. Thus, recommendations are being sent with the patient's [facility] documentation at discharge. [id number]/[facility] #: [id number] MTDAaron
== END 2016-12-12 12:10 | DRG 378 ==
LOC: ED 02:05 → MED 05:59 → OBSVTOIN 05:59 → INTOOBSV 05:59 → MEDTELE 12-11 10:44
PROVIDERS: ADMIT Internal Medicine; ATTEND Internal Medicine
DX: K57.91 Diverticulosis of intestine, part unspecified, without perforation or abscess with bleeding (principal); I25.110 Atherosclerotic heart disease of native coronary artery with unstable angina pectoris; E11.51 Type 2 diabetes mellitus with diabetic peripheral angiopathy without gangrene; F03.90 Unspecified dementia, unspecified severity, without behavioral disturbance, psychotic disturbance, mood disturbance, and anxiety; J44.9 Chronic obstructive pulmonary disease, unspecified; R13.10 Dysphagia, unspecified; E03.9 Hypothyroidism, unspecified; I10 Essential (primary) hypertension; I35.0 Nonrheumatic aortic (valve) stenosis; Z66 Do not resuscitate; D50.0 Iron deficiency anemia secondary to blood loss (chronic); R79.89 Other specified abnormal findings of blood chemistry; Z79.52 Long term (current) use of systemic steroids; Z88.2 Allergy status to sulfonamides; Z88.1 Allergy status to other antibiotic agents; Z85.89 Personal history of malignant neoplasm of other organs and systems; Z95.1 Presence of aortocoronary bypass graft; Z87.891 Personal history of nicotine dependence; Z95.0 Presence of cardiac pacemaker; Z90.710 Acquired absence of both cervix and uterus; Z86.73 Personal history of transient ischemic attack (TIA), and cerebral infarction without residual deficits
CPT/HCPCS: 36415; 71010; 74177; 80053; 82270; 82272; 83605; 83690; 84484; 85014; 85018; 85025; 85610; 85730; 86850; 86900; 86901; 87641; 93005; A9270-GY; J0360; J7512; Q9967